=== PATIENT | female | born 1985 | race Caucasian/White ===

== ENCOUNTER 2017-06-01 19:29 | Inpatient (IN) | payer SELFPAY ==
[~2017-06-01] VITALS: Ht 167.6 cm; Wt 60.3 kg
[~2017-06-01 19:29] MED LIST: AMBI10TA PO; DILA2TAB4 PO; IBUP800T23 PO; NICO21T TD; NORT1CAP53 PO; SUBO8MIS SL
[2017-06-01 19:43] VITALS: BP 131/74; PULSE 105; RESP 18; TEMP 98.6; O2SAT 100
[2017-06-01] MEDS ORDERED: SUBO8MIS SL (22:12)
[2017-06-01 22:13] VITALS: BP 126/66; PULSE 97; RESP 20; TEMP 98.4; O2SAT 100
[2017-06-01] MEDS ORDERED: ORPHENADRINE INJ 60 MG/2 ML AMP IM ONE (22:30)
[2017-06-01] MEDS ORDERED: traMADol HCL 50 MG TAB PO ONE (22:30)
[2017-06-01] MEDS ORDERED: KETOROLAC TROMETHAMINE 30 MG/ML (IVP) VIAL IV PUSH ONE (22:30)
--- NOTE | 2017-06-01 22:51 | PD ---
HPI Chief Complaint: Back/ Neck Pain or Injury Time Seen by Provider: 22:13 Travel History International Travel<30 days: No Contact w/Intl Traveler<30days: No Traveled to known affect area: No History of Present Illness HPI 32-year-old female that presents to the ED for evaluation of severe right-sided back pain with inability to ambulate. Per patient she has had this for the past 3 days. She denies any injury. No fall. She does have a history of substance abuse and has a history of IV drug abuse. Patient denies doing any IV drug abuse recently but family is at bedside. Patient is somewhat tachycardic. Per patient the pain comes in spasms and gets worse when she moves. She does have a history of back fractures in the past. She also has a history of endocarditis in the past as well. She denies any chest pain or shortness of breath. Per patient the pain comes and goes and gets worse with movement and she cannot walk because of the pain. She has been taking her Suboxone as well as [id number] remedies with some relief. She states that the pain when he comes is 10 out of 10. Denies any numbness, tingling, weakness. She points to the right lower back as the area of pain. Denies any recent surgeries to her back. Has not seen anybody for this. PFSH Past Medical History Autoimmune Disease: No Blood Disorders: No Anxiety: No Depression: No Cancer: No Cardiovascular Problems: Yes (history endocarditis ) Chemotherapy: No Diminished Hearing: No Endocrine: No Genitourinary: No Immune Disorder: No Musculoskeletal: Yes (chronic back) Psychiatric: No Reproductive: No Respiratory: No Migraines: Yes Tetanus Vaccination: < 5 Years Influenza Vaccination: No ?: Not LMP: 06/01/2017 Past Surgical History Surgical History: No Previous Surgery AICD: No Arteriovenous Shunt: No Insulin Pump: No Joint Replacement: No Pacemaker: No Social History Alcohol Use: No Tobacco Use: Yes (e cig) Substance Use: No (history of IV drug use ) Allergies-Medications (Allergen,Severity, Reaction): Coded Allergies: No Known Allergies (Verified Adverse Reaction, Unknown, 06/01/17) Reported Meds & Prescriptions Reported Meds & Active Scripts Active Reported Suboxone Sublingual Film (Buprenorphine-Naloxone Sublingual Film) 8-2 Mg Film 1 Film SL BID Unique ID number required: Review of Systems Except as stated in HPI: all other systems reviewed are Neg Physical Exam Narrative GENERAL: SKIN: Warm and dry. HEAD: Atraumatic. Normocephalic. EYES: Pupils equal and round. No scleral icterus. No injection or drainage. ENT: No nasal bleeding or discharge. Mucous membranes pink and moist. Tongue is midline. No uvula deviation. NECK: Trachea midline. No JVD. CARDIOVASCULAR: Regular rate and rhythm. No murmurs, S3, S4. RESPIRATORY: No accessory muscle use. Clear to auscultation. Breath sounds equal bilaterally. GASTROINTESTINAL: Abdomen soft, non-tender, nondistended. Hepatic and splenic margins not palpable. MUSCULOSKELETAL: Extremities without clubbing, cyanosis, or edema. No obvious deformities. Patient has reversible pain on the right lower back but not on the lumbar, thoracic, cervical spine tenderness to palpation. Obvious deformity noted. Pain with any range of motion of the back especially with flexion and extension. NEUROLOGICAL: Awake and alert. No obvious cranial nerve deficits. Motor grossly within normal limits. Five out of 5 muscle strength in the arms and legs. Normal speech. PSYCHIATRIC: Appropriate mood and affect; insight and judgment normal. Data Data Last Documented VS Vital Signs Date Time Temp Pulse Resp B/P (MAP) Pulse Ox O2 Delivery O2 Flow Rate FiO2 06/01/17 22:13 98.4 97 20 126/66 (86) 100 Room Air Orders Orders Complete Blood Count With Diff (06/01/17 22:20) Comprehensive Metabolic Panel (06/01/17 22:20) Blood Culture (06/01/17 22:20) C-Reactive Protein (Crp) (06/01/17 22:20) Urinalysis - C+S If Indicated (06/01/17 22:20) Magnesium (Mg) (06/01/17 22:20) Iv Access Insert/Monitor (06/01/17 22:20) Ketorolac Inj (Toradol Inj) (06/01/17 22:30) Tramadol (Ultram) (06/01/17 22:30) Orphenadrine Inj (Norflex Inj) (06/01/17 22:30) Mri L Spine W&W/O Contrast (06/01/17 ) MDM Medical Decision Making Medical Screen Exam Complete: Yes Emergency Medical Condition: Yes Medical Record Reviewed: Yes Differential Diagnosis Lumbar strain versus sciatica versus muscle strain versus muscle spasm versus abscess versus lumbar infection Narrative Course 32-year-old female that presents to the ED for evaluation of back pain. Patient was properly examined and was found to have signs and symptoms consistent with what appears to be back pain. Unclear etiology but definitely a little bit concerning for infection as patient has new onset pain with no injury. She does have a history of IV drug abuse in the past. Neurovascular she is intact but she is absolutely tachycardic. She does have a history of endocarditis in the past as well. She has no chest pain no murmurs noted on exam. I discussed the case with my attending Dr. Zhang who is in agreement that if there is concern for epidural abscess recommendation is for MRI. This was ordered. Patient was given pain medications are no narcotics. Case was signed out to my attending pending disposition and plan. Marquise Parada Jun 01, 2017 22:51
--- NOTE | 2017-06-02 00:18 | RADRPT ---
EXAM DATE/TIME: 06/01/2017 23:36 [facility] COMPARISON: No previous studies available for comparison. INDICATIONS : Pain. MEDICAL HISTORY : Endocarditis. SURGICAL HISTORY : None. ENCOUNTER: Initial ACUITY: 2 day PAIN SCORE: 10/10 LOCATION: [facility] TECHNIQUE: Multiplanar multisequence MRI of the lumbar spine was performed without contrast. FINDINGS: The most caudal appearing lumbar vertebra is numbered as L5. VERTEBRAE: Homogeneous signal. Normal alignment. Mild loss of height along the superior endplate at L3 with Elisabet morl's node deformity. There is edema along the endplates at L4-5. Disc spaces are maintained. CONUS: Normal level and configuration. T12-L1: The thecal sac has a normal diameter. No evidence of disc bulge or protrusion. The neural foramina are patent bilaterally. L1-L2: The thecal sac has a normal diameter. No evidence of disc bulge or protrusion. The neural foramina are patent bilaterally. L2-L3: Minimal broad-based bulge abuts ventral thecal sac without canal stenosis. The neural foramina are p atent bilaterally. L3-L4: The thecal sac has a normal diameter. No evidence of disc bulge or protrusion. The neural foramina are patent bilaterally. L4-L5: Moderate broad-based bulge with annular fissure posteriorly. This abuts the ventral thecal sac. No ca nal stenosis. The neural foramina are patent bilaterally. L5-S1: The thecal sac has a normal diameter. No evidence of disc bulge or protrusion. The neural foramina are patent bilaterally. CONCLUSION: 1. Disc bulges at L2-3 and L4-5 levels. 2. Reactive endplate edema at L4-5. 3. Mild loss of height of L3 with Schmorl node deformity. No acute compression fracture. Tong Crawford MD on June 02, 2017 at 0:15 Board Certified Radiologist. This report was verified electronically.
[2017-06-02 01:01] LABS: BILIRUBIN, URINE NEG (NEG); BLOOD, URINE SMALL (NEG); GLUCOSE,URINE NEG (NEG); KETONE, URINE NEG (NEG); NITRITE,URINE NEG (NEG); SQUAMOUS EPITHELIAL CELL URINE 3 /hpf (0-5); TRANSITIONAL EPI CELLS, URINE <1 /hpf; URINE COLOR LIGHT-YELLOW (YELLW/STRAW); URINE LEUKOCYTE ESTERASE TRACE (NEG)
--- NOTE | 2017-06-02 01:49 | PD ---
Physical Exam Date Seen by Provider: Jun 02, 2017 Time Seen by Provider: 01:47 Narrative The patient is a 32-year-old female was initially evaluated by the previous physician assistant project engineer, Marquise Parada PA-C. Please refer to the initial history, physical, diagnostic evaluation, treatment modality plan. Data Data Last Documented VS Vital Signs Date Time Temp Pulse Resp B/P (MAP) Pulse Ox O2 Delivery O2 Flow Rate FiO2 06/02/17 02:12 98.7 85 16 129/69 (89) 100 Room Air Orders Orders Complete Blood Count With Diff (06/01/17 22:20) Comprehensive Metabolic Panel (06/01/17 22:20) Blood Culture (06/01/17 22:20) C-Reactive Protein (Crp) (06/01/17 22:20) Urinalysis - C+S If Indicated (06/01/17 22:20) Magnesium (Mg) (06/01/17 22:20) Iv Access Insert/Monitor (06/01/17 22:20) Ketorolac Inj (Toradol Inj) (06/01/17 22:30) Tramadol (Ultram) (06/01/17 22:30) Orphenadrine Inj (Norflex Inj) (06/01/17 22:30) Mri L Spine W/O Contrast (06/01/17 ) Vancomycin Inj (Vancomycin Inj) (06/02/17 02:00) Piperacil-Tazo 4.5 Gm Premix (Zosyn 4.5 (06/02/17 02:00) Morphine Inj (Morphine Inj) (06/02/17 02:00) Ondansetron Inj (Zofran Inj) (06/02/17 02:00) Sodium Chlor 0.9% 1000 Ml Inj (Ns 1000 M (06/02/17 02:00) Labs Laboratory Tests Test 06/02/17 00:50 06/02/17 01:50 Urine Color LIGHT-YELLOW Urine Turbidity CLEAR Urine pH 7.0 Urine Specific [place] 1.003 Urine Protein NEG mg/dL Urine Glucose (UA) NEG mg/dL Urine Ketones NEG mg/dL Urine Occult Blood SMALL Urine Nitrite NEG Urine Bilirubin NEG Urine Urobilinogen LESS THAN 2.0 MG/DL Urine Leukocyte Esterase TRACE Urine RBC 1 /hpf Urine WBC 1 /hpf Urine Squamous Epithelial Cells 3 /hpf Urine Transitional Epithelial Cells <1 /hpf Microscopic Urinalysis Comment CULT NOT INDICATED White Blood Count 14.0 TH/MM3 Red Blood Count 4.04 MIL/MM3 Hemoglobin 11.7 GM/DL Hematocrit 34.5 % Mean Corpuscular Volume 85.6 FL Mean Corpuscular Hemoglobin 29.1 PG Mean Corpuscular Hemoglobin Concent 34.0 % Red Cell Distribution Width 13.0 % Platelet Count 348 TH/MM3 Mean Platelet Volume 6.5 FL Neutrophils (%) (Auto) 83.7 % Lymphocytes (%) (Auto) 11.7 % Monocytes (%) (Auto) 3.2 % Eosinophils (%) (Auto) 1.0 % Basophils (%) (Auto) 0.4 % Neutrophils # (Auto) 11.8 TH/MM3 Lymphocytes # (Auto) 1.6 TH/MM3 Monocytes # (Auto) 0.5 TH/MM3 Eosinophils # (Auto) 0.1 TH/MM3 Basophils # (Auto) 0.1 TH/MM3 CBC Comment DIFF FINAL Differential Comment Blood Urea Nitrogen 8 MG/DL Creatinine 0.73 MG/DL Random Glucose 75 MG/DL Total Protein 8.5 GM/DL Albumin 3.6 GM/DL Calcium Level 9.2 MG/DL Magnesium Level 2.2 MG/DL Alkaline Phosphatase 72 U/L Aspartate Amino Transf (AST/SGOT) 17 U/L Alanine Aminotransferase (ALT/SGPT) 11 U/L Total Bilirubin 0.5 MG/DL Sodium Level 139 MEQ/L Potassium Level 3.6 MEQ/L Chloride Level 104 MEQ/L Carbon Dioxide Level 24.9 MEQ/L Anion Gap 10 MEQ/L Estimat Glomerular Filtration Rate 93 ML/MIN C-Reactive Protein 8.42 MG/DL [facility] Medical Record Reviewed: Yes Supervised Visit with SLICK: Yes Interpretation(s) Last Impressions Lumbar Spine MRI 06/01/17 0000 Signed Impressions: Service Date/Time: Thursday, June 01, 2017 23:36 - CONCLUSION: 1. Disc bulges at L2-3 and L4-5 levels. 2. Reactive endplate edema at L4-5. 3. Mild loss of height of L3 with Schmorl node deformity. No acute compression fracture. Tong Crawford MD Laboratory Tests Test 06/02/17 00:50 06/02/17 01:50 Urine Color LIGHT-YELLOW Urine Turbidity CLEAR Urine pH 7.0 Urine Specific [place] 1.003 Urine Protein NEG mg/dL Urine Glucose (UA) NEG mg/dL Urine Ketones NEG mg/dL Urine Occult Blood SMALL Urine Nitrite NEG Urine Bilirubin NEG Urine Urobilinogen LESS THAN 2.0 MG/DL Urine Leukocyte Esterase TRACE Urine RBC 1 /hpf Urine WBC 1 /hpf Urine Squamous Epithelial Cells 3 /hpf Urine Transitional Epithelial Cells <1 /hpf Microscopic Urinalysis Comment CULT NOT INDICATED White Blood Count 14.0 TH/MM3 Red Blood Count 4.04 MIL/MM3 Hemoglobin 11.7 GM/DL Hematocrit 34.5 % Mean Corpuscular Volume 85.6 FL Mean Corpuscular Hemoglobin 29.1 PG Mean Corpuscular Hemoglobin Concent 34.0 % Red Cell Distribution Width 13.0 % Platelet Count 348 TH/MM3 Mean Platelet Volume 6.5 FL Neutrophils (%) (Auto) 83.7 % Lymphocytes (%) (Auto) 11.7 % Monocytes (%) (Auto) 3.2 % Eosinophils (%) (Auto) 1.0 % Basophils (%) (Auto) 0.4 % Neutrophils # (Auto) 11.8 TH/MM3 Lymphocytes # (Auto) 1.6 TH/MM3 Monocytes # (Auto) 0.5 TH/MM3 Eosinophils # (Auto) 0.1 TH/MM3 Basophils # (Auto) 0.1 TH/MM3 CBC Comment DIFF FINAL Differential Comment Blood Urea Nitrogen 8 MG/DL Creatinine 0.73 MG/DL Random Glucose 75 MG/DL Total Protein 8.5 GM/DL Albumin 3.6 GM/DL Calcium Level 9.2 MG/DL Magnesium Level 2.2 MG/DL Alkaline Phosphatase 72 U/L Aspartate Amino Transf (AST/SGOT) 17 U/L Alanine Aminotransferase (ALT/SGPT) 11 U/L Total Bilirubin 0.5 MG/DL Sodium Level 139 MEQ/L Potassium Level 3.6 MEQ/L Chloride Level 104 MEQ/L Carbon Dioxide Level 24.9 MEQ/L Anion Gap 10 MEQ/L Estimat Glomerular Filtration Rate 93 ML/MIN C-Reactive Protein 8.42 MG/DL Differential Diagnosis Differential diagnosis includes epidural abscess, psoas abscess, discitis, IV drug abuse, back pain with radiculopathy, lumbar ago, herniated disc. Narrative Course The patient was initially evaluated by the physician assistant project engineer, Marquise Parada PA-C. Please refer to the initial history, physical, diagnostic evaluation, treatment modality plan. The patient was signed out at 11 PM with MRI pending for possible epidural/psoas abscess and/or discitis with a history of IV drug abuse and back pain. The patient states she is used no IV drugs since August 2016 and has been on Suboxone. The patient was noted to have some right paravertebral tenderness, therefore, MRI was ordered by the physician assistant project engineer , Marquise Parada. MRI was performed initially without contrast secondary to no IV access. MRI did reveal edema at the L4-L5 level. Therefore, I placed an ultrasound-guided IV in the left upper extremity, patient will need repeat MRI with contrast in the a.m. to evaluate for possible discitis. The patient will be covered with vancomycin and Zosyn. The on-call medical service was paged for admission. White count was elevated at 14.0wa and CRP s elevated greater than 8. Patient may need repeat MRI with contrast to evaluate if this is truly infectious. Therefore, the on-call medical physician was paged for observation. Procedures Procedure Narrative I placed an ultrasound-guided IV in the left upper extremity with a linear probe and a 1.88 inch 20-gauge IV. I placed the IV in the left upper extremity , there was good blood return and the IV fluid easily. There is no obvious complications. The patient tolerated the procedure without difficulty. Physician Communication Physician Communication [facility] were paged for 23 hour observation. Diagnosis Primary Impression: Back pain Qualified Codes: M54.40 - Lumbago with sciatica, unspecified side Admitting Information Admitting Physician Requests: Observation Condition: Stable Ramsey Zhang MD Jun 02, 2017 01:49
[2017-06-02] MEDS ORDERED: MORPHINE SULFATE 4 MG/ML INJ IV PUSH ONE (02:00)
[2017-06-02] MEDS ORDERED: VANCOMYCIN INJ 1,000 MG in SODIUM CHLOR 0.9% 250 ML INJ 250 ML IV ONE (02:00)
[2017-06-02] MEDS ORDERED: ONDANSETRON HCL 4 MG/2 ML VIAL IV PUSH ONE (02:00)
[2017-06-02] MEDS ORDERED: PIPERACIL-TAZO 4.5 GM PREMIX 100 ML IV ONE (02:00)
[2017-06-02] MEDS ORDERED: SODIUM CHLOR 0.9% 1000 ML INJ 1,000 ML IV ONE (02:00)
[2017-06-02 02:12] VITALS: BP 129/69; PULSE 85; RESP 16; TEMP 98.7; O2SAT 100
[2017-06-02 02:14] LABS: AUTOMATED NEUTROPHIL # 11.8 TH/MM3 (1.8-7.7); BASOPHIL # 0.1 TH/MM3 (0-0.2); BASOPHIL % 0.4 % (0.0-2.0); EOSINOPHIL # 0.1 TH/MM3 (0-0.4); HEMATOCRIT 34.5 % (35.0-46.0); HEMOGLOBIN 11.7 GM/DL (11.6-15.3); LYMPH % 11.7 % (9.0-44.0); LYMPHOCYTE # 1.6 TH/MM3 (1.0-4.8); MEAN CELL VOLUME 85.6 FL (80.0-100.0); MEAN CORPUSCULAR HEMOGLOBIN 29.1 PG (27.0-34.0); MEAN PLATELET VOLUME 6.5 FL (7.0-11.0); MONO % 3.2 % (0.0-8.0); MONOCYTE # 0.5 TH/MM3 (0-0.9); NEUT % 83.7 % (16.0-70.0); PLATELET COUNT 348 TH/MM3 (150-450); RED BLOOD COUNT 4.04 MIL/MM3 (4.00-5.30)
[2017-06-02 02:25] LABS: ALKALINE PHOSPHATASE 72 U/L (45-117); ALT (GPT) 11 U/L (10-53); C-REACTIVE PROTEIN 8.42 MG/DL (0.00-0.30); TOTAL BILIRUBIN ADULT 0.5 MG/DL (0.2-1.0); TOTAL PROTEIN 8.5 GM/DL (6.4-8.2)
[2017-06-02 02:27] LABS: ALBUMIN 3.6 GM/DL (3.4-5.0); AST (GOT) 17 U/L (15-37); BICARBONATE 24.9 MEQ/L (21.0-32.0); BLOOD UREA NITROGEN 8 MG/DL (7-18); CALCIUM 9.2 MG/DL (8.5-10.1); CHLORIDE 104 MEQ/L (98-107); CREATININE 0.73 MG/DL (0.50-1.00); GLOMERULAR FILTRATION RATE 93 ML/MIN (>89); GLUCOSE,RANDOM 75 MG/DL (74-106); MAGNESIUM 2.2 MG/DL (1.5-2.5); SODIUM (NA) 139 MEQ/L (136-145)
[2017-06-02] MEDS ORDERED: SENNOSIDES 8.6 MG TAB PO PRN (02:45)
[2017-06-02] MEDS ORDERED: BISACODYL 10 MG SUPP RECTAL PRN (02:45)
[2017-06-02] MEDS ORDERED: ONDANSETRON HCL 4 MG/2 ML VIAL IVP PRN (02:45)
[2017-06-02] MEDS ORDERED: traMADol HCL 50 MG TAB PO PRN (02:45)
[2017-06-02] MEDS ORDERED: LACTULOSE SYRUP 20 GM/30 ML CUP PO PRN (02:45)
[2017-06-02] MEDS ORDERED: NALOXONE HCL 0.4 MG/ML AMP IV PUSH PRN (02:45)
[2017-06-02] MEDS ORDERED: MAGNESIUM HYDROXIDE SUSP 30 ML CUP PO PRN (02:45)
[2017-06-02] MEDS ORDERED: Vancomycin Consult Pharmacy 1 EA OTHER SCH (03:00)
--- NOTE | 2017-06-02 03:47 | HHI.HP ---
[facility] No Primary Care Physician Admission Diagnosis Back pain rule out discitis Diagnoses: Travel History International Travel<30 Days: No Contact w/Intl Traveler <30 Da: No Traveled to Known Affected Are: No History of Present Illness 32-year-old female with past medical history significant for IV drug abuse and history of endocarditis presents to the emergency department for evaluation of lower back pain. The patient reports that for the past 3 days she has had a sharp, stabbing pain in her lower back. She reports the pain is worse with movement but is there all the time. She reports she is having difficulty with ambulation secondary to this pain. She denies any shortness of breath or chest pain. No fevers or chills. No nausea/vomiting. No abdominal pain. No lateralizing signs/symptoms. No bowel/bladder incontinence. Review of Systems Except as stated in HPI: all other systems reviewed are Neg Past Family Social History Past Medical History History of endocarditis and IV drug abuse Past Surgical History None Reported Medications Reported Meds & Active Scripts Active Reported Suboxone Sublingual Film (Buprenorphine-Naloxone Sublingual Film) 8-2 Mg Film 1 Film SL BID Unique ID number required: Allergies: Coded Allergies: No Known Allergies (Verified Allergy, Unknown, 06/02/17) Family History Negative for CAD/DM Social History Uses electronic cigarettes. Denies alcohol and illicit drugs. Has a history of IV drug abuse with last injection approximately 6-8 months ago. Physical Exam Vital Signs Vital Signs Date Time Temp Pulse Resp B/P (MAP) Pulse Ox O2 Delivery O2 Flow Rate FiO2 06/02/17 02:12 98.7 85 16 129/69 (89) 100 Room Air 06/01/17 22:13 98.4 97 20 126/66 (86) 100 Room Air 06/01/17 19:43 98.6 105 18 131/74 (93) 100 Room Air Physical Exam GENERAL: female lying in bed SKIN: No rashes, ecchymoses or lesions. Cool and dry. HEAD: Atraumatic. Normocephalic. No temporal or scalp tenderness. EYES: Pupils equal round and reactive. Extraocular motions intact. No scleral icterus. No injection or drainage. ENT: Nose without bleeding, purulent drainage or septal hematoma. Throat without erythema, tonsillar hypertrophy or exudate. Uvula midline. Airway patent. NECK: Trachea midline. No JVD or lymphadenopathy. Supple, nontender, no meningeal signs. CARDIOVASCULAR: Regular rate and rhythm without murmurs, gallops, or rubs. RESPIRATORY: Clear to auscultation. Breath sounds equal bilaterally. No wheezes , rales, or rhonchi. GASTROINTESTINAL: Abdomen soft, non-tender, nondistended. No hepato-splenomegaly , or palpable masses. No guarding. MUSCULOSKELETAL: Extremities without clubbing, cyanosis, or edema. No joint tenderness, effusion, or edema noted. No calf tenderness. NEUROLOGICAL: Awake and alert. Cranial nerves II through XII intact. Motor and sensory grossly within normal limits. Five out of 5 muscle strength in all muscle groups. Normal speech. Laboratory Laboratory Tests Test 06/02/17 00:50 06/02/17 01:50 Urine Color LIGHT-YELLOW Urine Turbidity CLEAR Urine pH 7.0 Urine Specific [place] 1.003 Urine Protein NEG Urine Glucose (UA) NEG Urine Ketones NEG Urine Occult Blood SMALL Urine Nitrite NEG Urine Bilirubin NEG Urine Urobilinogen LESS THAN 2.0 Urine Leukocyte Esterase TRACE Urine RBC 1 Urine WBC 1 Urine Squamous Epithelial Cells 3 Urine Transitional Epithelial Cells <1 Microscopic Urinalysis Comment CULT NOT INDICATED White Blood Count 14.0 Red Blood Count 4.04 Hemoglobin 11.7 Hematocrit 34.5 Mean Corpuscular Volume 85.6 Mean Corpuscular Hemoglobin 29.1 Mean Corpuscular Hemoglobin Concent 34.0 Red Cell Distribution Width 13.0 Platelet Count 348 Mean Platelet Volume 6.5 Neutrophils (%) (Auto) 83.7 Lymphocytes (%) (Auto) 11.7 Monocytes (%) (Auto) 3.2 Eosinophils (%) (Auto) 1.0 Basophils (%) (Auto) 0.4 Neutrophils # (Auto) 11.8 Lymphocytes # (Auto) 1.6 Monocytes # (Auto) 0.5 Eosinophils # (Auto) 0.1 Basophils # (Auto) 0.1 CBC Comment DIFF FINAL Differential Comment Blood Urea Nitrogen 8 Creatinine 0.73 Random Glucose 75 Total Protein 8.5 Albumin 3.6 Calcium Level 9.2 Magnesium Level 2.2 Alkaline Phosphatase 72 Aspartate Amino Transf (AST/SGOT) 17 Alanine Aminotransferase (ALT/SGPT) 11 Total Bilirubin 0.5 Sodium Level 139 Potassium Level 3.6 Chloride Level 104 Carbon Dioxide Level 24.9 Anion Gap 10 Estimat Glomerular Filtration Rate 93 C-Reactive Protein 8.42 Date/Time Source Procedure Growth Status 06/02/17 01:55 Blood Peripheral Aerobic Blood Culture Pending Received 06/02/17 01:55 Blood Peripheral Anaerobic Blood Culture Pending Received Result Diagram: 06/02/17 0150 06/02/17 0150 Caprini VTE Risk Assessment Caprini VTE Risk Assessment: No/Low Risk (score <= 1) Caprini Risk Assessment Model Point Value = 1 Point Value = 2 Point Value = 3 Point Value = 5 Age 41-60 Minor surgery BMI > 25 kg/m2 Swollen legs Varicose veins or History of unexplained or recurrent spontaneous Oral contraceptives or hormone replacement Sepsis (< 1 month) Serious lung disease, including pneumonia (< 1 month) Abnormal pulmonary function Acute myocardial infarction Congestive heart failure (< 1 month) History of inflammatory bowel disease Medical patient at bed rest Age 61-74 Arthroscopic surgery Major open surgery (> 45 min) Laparoscopic surgery (> 45 min) Malignancy Confined to bed (> 72 hours) Immobilizing plaster cast Central venous access Age >= 75 History of VTE Family history of VTE Factor V Leiden Prothrombin [id number] Lupus anticoagulant Anticardiolipin antibodies Elevated serum homocysteine Heparin-induced thrombocytopenia Other congenital or acquired thrombophilia Stroke (< 1 month) Elective arthroplasty Hip, pelvis, or leg fracture Acute spinal cord injury (< 1 month) Prophylaxis Regimen Total Risk Factor Score Risk Level Prophylaxis Regimen 0-1 Low Early ambulation 2 Moderate Order ONE of the following: *Sequential Compression Device (SCD) *Heparin 5000 units SQ BID 3-4 Higher Order ONE of the following medications: *Heparin 5000 units SQ TID *Enoxaparin/Lovenox 40 mg SQ daily (WT < 150 kg, CrCl > 30 mL/min) *Enoxaparin/Lovenox 30 mg SQ daily (WT < 150 kg, CrCl > 10-29 mL/min) *Enoxaparin/Lovenox 30 mg SQ BID (WT < 150 kg, CrCl > 30 mL/min) AND/OR *Sequential Compression Device (SCD) 5 or more Highest Order ONE of the following medications: *Heparin 5000 units SQ TID (Preferred with Epidurals) *Enoxaparin/Lovenox 40 mg SQ daily (WT < 150 kg, CrCl > 30 mL/min) *Enoxaparin/Lovenox 30 mg SQ daily (WT < 150 kg, CrCl > 10-29 mL/min) *Enoxaparin/Lovenox 30 mg SQ BID (WT < 150 kg, CrCl > 30 mL/min) AND *Sequential Compression Device (SCD) Assessment and Plan Assessment and Plan Assessment/plan: 1. Back pain MRI of the lumbar spine showed disc bulges at L2-3 and L4-5 with reactive endplate edema at L4-5. Concern for discitis versus possible abscess. Leukocytosis with elevated CRP MRI with contrast pending Vancomycin/Zosyn Blood cultures pending If MRI significant for abscess/discitis will consult neurosurgery and infectious disease 2. History of IV drug abuse Patient currently on Suboxone Patient's mother requested that the patient not be given any narcotics at this time Per patient report, last use was 6-8 months ago 3. History of endocarditis Blood cultures pending If positive, will obtain echo FEN NPO Electrolytes: Monitor and replete as needed NS at 80 cc/hour Sirena Roman MD Jun 02, 2017 03:46
[2017-06-02] MEDS: CYCLOBENZAPRINE HCL 10 MG TAB PO PRN ×3 (04:43→17:39)
[2017-06-02 04:44] VITALS: BP 135/75; PULSE 87; RESP 19; TEMP 98.4; O2SAT 100
[2017-06-02] MEDS: ACETAMINOPHEN 325 MG TAB PO PRN (07:34)
[2017-06-02] MEDS: SODIUM CHLOR 0.9% 1000 ML INJ 1,000 ML IV SCH ×2 (07:35→15:00)
[2017-06-02] MEDS ORDERED: GADODIAMIDE PF 287 MG/ML 5 ML VIAL (for RAD MRI) IVCONTRAST ONE (08:00)
[2017-06-02] MEDS ORDERED: PIPERACIL-TAZO 3.375 GM PREMIX 50 ML IV SCH (08:00)
[2017-06-02] MEDS: SODIUM CHLORIDE 0.9% FLUSH 10 ML FLUSH IV FLUSH SCH ×2 (08:57→19:39)
[2017-06-02] MEDS: DOCUSATE SODIUM 50 MG/SENNA 8.6 MG TAB PO SCH ×2 (08:57→19:40)
[2017-06-02 09:03] VITALS: BP 128/80; PULSE 86; RESP 19; TEMP 99.5; O2SAT 100
[2017-06-02] MEDS ORDERED: VANCOMYCIN INJ 1,250 MG in SODIUM CHLOR 0.9% 250 ML INJ 250 ML IV SCH (12:00)
--- NOTE | 2017-06-02 12:19 | RADRPT ---
EXAM DATE/TIME: 06/02/2017 07:43 [facility] COMPARISON: MRI LUMBAR SPINE W & W/O CONTRAST, July 11, 2015, 15:53. INDICATIONS : Severe back pain. CONTRAST: 12 cc Omniscan (gadodiamide) IV MEDICAL HISTORY : IVDU. SURGICAL HISTORY : Dental. ENCOUNTER: Subsequent ACUITY: 2 day PAIN SCORE: 8/10 LOCATION: back. TECHNIQUE: Multiplanar multisequence MRI of the lumbar spine was performed with and without contrast. FINDINGS: The most caudal appearing lumbar vertebra is numbered as L5. VERTEBRAE: The vertebral bodies are stable in appearance with chronic mild compression fracture deformity of the L3 vertebral body again noted which demonstrates no marrow edema. There is new marrow edema involvin g the endplates at the L4-5 level. There is desiccation disc space narrowing at the L4-5 level as wel l. Normal alignment. CONUS: Normal level and configuration. POST CONTRAST: Mild apparent reactive enhancement is noted in the endplates at the L4-5 level corresponding to the a reas of marrow edema. There is slight enhancement of the foot posterior annulus is seen on sagittal i mage #6. T12-L1: The thecal sac has a normal diameter. No evidence of disc bulge or protrusion. The neural foramina are patent bilaterally. L1-L2: The thecal sac has a normal diameter. No evidence of disc bulge or protrusion. The neural foramina are patent bilaterally. L2-L3: The thecal sac has a normal diameter. No evidence of disc bulge or protrusion. The neural foramina are patent bilaterally. L3-L4: The thecal sac has a normal diameter. No evidence of disc bulge or protrusion. The neural foramina are patent bilaterally. L4-L5: There is a mild annular disc bulge with mild flattening the anterior thecal sac and no focal protrusi on. There is mild narrowing of the neural foramina. There are mild degenerative changes involving the facet joints. L5-S1: The thecal sac has a normal diameter. No evidence of disc bulge or protrusion. The neural foramina are patent bilaterally. There are mild degenerative change involving the facet joints. CONCLUSION: 1. No evidence of abscess. 2. New mild reactive appearing marrow edema and bony endplates at L4-5 with mild apparent reactive en hancement. There is slight enhancement in posterior disc margin the disc bulge is present. This could be degenerative there is no definite evidence of discitis. 3. Mild degenerative change involving the lower facet joints. Samson Schaffer MD on June 02, 2017 at 12:09 Board Certified Radiologist. This report was verified electronically.
[2017-06-02] MEDS ORDERED: ACETAMINOPHEN/HYDROcodone 325 MG/5 MG TAB PO PRN (13:15)
--- NOTE | 2017-06-02 13:30 | HHI.PR ---
Subjective Remarks Follow up on patient with back pain. Patient seen and examined. Patient complaining of severe low back pain with occasional radiation into the right lateral thigh. She denies any fever or chills. She denies any chest pain or dyspnea. She denies any nausea, vomiting or abdominal pain. She denies any saddle paresthesias. She denies any bladder or bowel incontinence. Objective Vitals Vital Signs Date Time Temp Pulse Resp B/P (MAP) Pulse Ox O2 Delivery O2 Flow Rate FiO2 06/02/17 09:03 99.5 86 19 128/80 (96) 100 Room Air 06/02/17 04:44 98.4 87 19 135/75 (95) 100 Room Air 06/02/17 02:12 98.7 85 16 129/69 (89) 100 Room Air 06/01/17 22:13 98.4 97 20 126/66 (86) 100 Room Air 06/01/17 19:43 98.6 105 18 131/74 (93) 100 Room Air I/O 06/01/17 06/01/17 06/01/17 06/02/17 06/02/17 06/02/17 07:00 15:00 23:00 07:00 15:00 23:00 Intake Total 1350 ml Balance 1350 ml Intake IV Total 1350 ml # Voids 2 Result Diagram: 06/02/17 0150 06/02/17 0150 Imaging Last Impressions Lumbar Spine MRI 06/02/17 0000 Signed Impressions: Service Date/Time: May 07:43 - CONCLUSION: 1. No evidence of abscess. 2. New mild reactive appearing marrow edema and bony endplates at L4-5 with mild apparent reactive enhancement. There is slight enhancement in posterior disc margin the disc bulge is present. This could be degenerative there is no definite evidence of discitis. 3. Mild degenerative change involving the lower facet joints. Samson Schaffer MD Objective Remarks GENERAL: WDWN young female patient. Awake and alert. Appears uncomfortable secondary to back pain. SKIN: No rashes, ecchymoses or lesions. Cool and dry. HEAD: Atraumatic. Normocephalic. No temporal or scalp tenderness. EYES: Pupils equal round and reactive. Extraocular motions intact. No scleral icterus. No injection or drainage. ENT: Nose without bleeding or purulent drainage. Airway patent. MMM. NECK: Trachea midline. CARDIOVASCULAR: Regular rate and rhythm without murmurs, gallops, or rubs. RESPIRATORY: Clear to auscultation. Breath sounds equal bilaterally. No wheezes , rales, or rhonchi. GASTROINTESTINAL: Abdomen soft, non-tender, nondistended. No hepato-splenomegaly , or palpable masses. No guarding. MUSCULOSKELETAL: Extremities without clubbing, cyanosis, or edema. No calf tenderness. Unable to assess ROM secondary to pain. (+)right SLR. NEUROLOGICAL: Awake and alert. Cranial nerves II through XII grossly intact. Motor and sensory grossly within normal limits. Normal speech. PSYCHIATRIC: Tearful, calm and cooperative. Medications and IVs Current Medications Medications (Trade) Dose Ordered Sig/Elisabet Route Start Time Stop Time Status Last Admin Sodium Chloride 1,000 ml @ 80 mls/hr [id number] IV 06/02/17 02:38 (NS Flush) 2 ml UNSCH PRN IV FLUSH 06/02/17 02:45 (NS Flush) 2 ml BID IV FLUSH 06/02/17 09:00 06/02/17 08:57 (Tylenol) 650 mg Q4H PRN PO 06/02/17 02:45 06/02/17 07:34 (Zofran Inj) 4 mg Q6H PRN IVP 06/02/17 02:45 (Narcan Inj) 0.4 mg UNSCH PRN IV PUSH 06/02/17 02:45 (Micki-Colace) 1 tab BID PO 06/02/17 09:00 06/02/17 08:57 (Milk Of Magnesia Liq) 30 ml Q12H PRN PO 06/02/17 02:45 (Senokot) 17.2 mg Q12H PRN PO 06/02/17 02:45 (Dulcolax Supp) 10 mg DAILY PRN RECTAL 06/02/17 02:45 (Lactulose Liq) 30 ml DAILY PRN PO 06/02/17 02:45 Piperacillin Sod/ Tazobactam Sod 50 ml @ 100 mls/hr Q6H IV 06/02/17 08:00 06/02/17 08:57 Pharmacy Profile Note 0 ml @ 0 mls/hr UNSCH OTHER 06/02/17 03:00 (Flexeril) 10 mg Q8H PRN PO 06/02/17 03:45 06/02/17 13:02 Vancomycin HCl 1250 mg/Sodium Chloride 262.5 ml @ 250 mls/hr Q12H IV 06/02/17 12:00 06/02/17 13:02 Miscellaneous Information SPECIFIC LAB TO BE DRAWN:VANCOMYCIN TROUGH DATE TO... ONCE ONCE .XX 06/03/17 11:45 06/03/17 11:46 A/P Assessment and Plan 32-year-old female with past medical history significant for IV drug abuse and history of endocarditis presents to the emergency department for evaluation of lower back pain. Back pain MRI of the lumbar spine showed disc bulges at L2-3 and L4-5 with reactive endplate edema at L4-5. Concern for discitis versus possible abscess. Leukocytosis with elevated CRP, afebrile MRI with contrast shows new mild reactive appearing marrow edema and bony endplates at L45 with mild apparent reactive enhancement -Consult ID, appreciate recommendations. Per IR, not amenable to biopsy. Plans to stop IV antibiotics and obtain WBC scan. -BCX currently pending, continue to follow -pain management with bowel regimen -monitor white count -PT eval/tx History of IV drug abuse Patient has not used in past 6-8 months, currently on Suboxone as outpatient -obtain UDS -monitor opiate use History of endocarditis Blood cultures pending -If positive, will obtain echo FEN Regular diet Electrolytes: Monitor and replete as needed NS at 80 cc/hour Martha Sierra Jun 02, 2017 13:30
[2017-06-02] MEDS: ACETAMINOPHEN/HYDROcodone 325 MG/10 MG TAB PO PRN ×2 (14:22→21:20)
--- NOTE | 2017-06-02 14:30 | PD.ID.CON ---
History of Present Illness Service ID Consult Requested By Martha Garza PA-C Reason for Consult Evaluation and Mment of possible discitis Primary Care Physician No Primary Care Physician Diagnoses: History of Present Illness is a 32 y/o CF with PMHx of IV drug abuse and history of endocarditis presents to the emergency department for evaluation of lower back pain. The patient reports that for the past 3 days she has had a sharp, stabbing pain in her lower back. She reports the pain is worse with movement but is there all the time. She reports she is having difficulty with ambulation secondary to this pain. She denies any shortness of breath or chest pain. No fevers or chills. No nausea/vomiting. No abdominal pain. No lateralizing signs/symptoms except complains of pain radiating from back to Right leg. No tingling numbness. No loss of sensation in perineum. No bowel/bladder incontinence. ID consulted for evaluation and Mment of Discitis. Review of Systems Constitutional: DENIES: Diaphoretic episodes, Fatigue, Fever, Weight gain, Weight loss, Chills, Dizziness, Change in appetite, Night Sweats Endocrine: DENIES: Abnorml menstrual pattern, Heat/cold intolerance, Polydipsia , Polyuria, Polyphagia Eyes: DENIES: Blurred vision, Diplopia, Eye inflammation, Eye pain, Vision loss , Photosensitivity, Double Vision Ears, nose, mouth, throat: DENIES: Tinnitus, Hearing loss, Vertigo, Nasal discharge, Oral lesions, Throat pain, Hoarseness, Ear Pain, Running Nose, Epistaxis, Sinus Pain, Toothache, Odynophagia Respiratory: DENIES: Apneas, Cough, Snoring, Wheezing, Hemoptysis, Sputum production, Shortness of breath Cardiovascular: DENIES: Chest pain, Palpitations, Syncope, Dyspnea on Exertion , PND, Lower Extremity Edema, Orthopnea, Claudication Gastrointestinal: DENIES: Abdominal pain, Black stools, Bloody stools, Constipation, Diarrhea, Nausea, Vomiting, Difficulty Swallowing, Anorexia Genitourinary: DENIES: Abnormal vaginal bleeding, Dysmenorrhea, Dyspareunia, Sexual dysfunction, Urinary frequency, Urinary incontinence, Urgency, Hematuria , Dysuria, Nocturia, Vaginal discharge Musculoskeletal: DENIES: Joint pain, Muscle aches, Stiffness, Joint Swelling, Back pain, Neck pain Integumentary: DENIES: Abnormal pigmentation, Pruritus, Rash, Nail changes, Breast masses, Breast skin changes, Nipple discharge Hematologic/lymphatic: DENIES: Bruising, Lymphadenopathy Immunologic/allergic: DENIES: Eczema, Urticaria Neurologic: DENIES: Abnormal gait, Headache, Localized weakness, Paresthesias, Seizures, Speech Problems, Tremor, Poor Balance Psychiatric: DENIES: Anxiety, Confusion, Mood changes, Depression, Hallucinations, Agitation, Suicidal Ideation, Homicidal Ideation, Delusions Except as stated in HPI: all other systems reviewed are Neg Past Family Social History Allergies: Coded Allergies: No Known Allergies (Verified Allergy, Unknown, 06/02/17) Past Medical History History of endocarditis and IV drug abuse Past Surgical History None Reported Medications Reported Meds & Active Scripts Active Reported Suboxone Sublingual Film (Buprenorphine-Naloxone Sublingual Film) 8-2 Mg Film 1 Film SL BID Unique ID number required: Active Ordered Medications Current Medications Medications (Trade) Dose Ordered Sig/Elisabet Route Start Time Stop Time Status Last Admin Sodium Chloride 1,000 ml @ 80 mls/hr [id number] IV 06/02/17 02:38 06/03/17 03:21 (NS Flush) 2 ml UNSCH PRN IV FLUSH 06/02/17 02:45 (NS Flush) 2 ml BID IV FLUSH 06/02/17 09:00 06/02/17 19:39 (Tylenol) 650 mg Q4H PRN PO 06/02/17 02:45 06/02/17 07:34 (Zofran Inj) 4 mg Q6H PRN IVP 06/02/17 02:45 (Narcan Inj) 0.4 mg UNSCH PRN IV PUSH 06/02/17 02:45 (Micki-Colace) 1 tab BID PO 06/02/17 09:00 06/02/17 19:40 (Milk Of Magnesia Liq) 30 ml Q12H PRN PO 06/02/17 02:45 (Senokot) 17.2 mg Q12H PRN PO 06/02/17 02:45 (Dulcolax Supp) 10 mg DAILY PRN RECTAL 06/02/17 02:45 (Lactulose Liq) 30 ml DAILY PRN PO 06/02/17 02:45 (Flexeril) 10 mg Q8H PRN PO 06/02/17 03:45 06/03/17 02:02 (Fountain 5-325 Mg) 1 tab Q6H PRN PO 06/02/17 13:15 (Fountain 10-325 Mg) 1 tab Q6H PRN PO 06/02/17 13:15 06/03/17 03:28 Family History reviewed and [place] Social History Uses electronic cigarettes. Denies alcohol and illicit drugs. Has a history of IV drug abuse with last injection approximately 6-8 months ago. Lives with her parents. Lost her job at [employer]. Physical Exam Vital Signs Vital Signs Date Time Temp Pulse Resp B/P (MAP) Pulse Ox O2 Delivery O2 Flow Rate FiO2 06/02/17 09:03 99.5 86 19 128/80 (96) 100 Room Air 06/02/17 04:44 98.4 87 19 135/75 (95) 100 Room Air 06/02/17 02:12 98.7 85 16 129/69 (89) 100 Room Air 06/01/17 22:13 98.4 97 20 126/66 (86) 100 Room Air 06/01/17 19:43 98.6 105 18 131/74 (93) 100 Room Air Physical Exam GENERAL: This is a well-nourished, well-developed patient, in no apparent distress. SKIN: No rashes, ecchymoses or lesions. Cool and dry. HEAD: Atraumatic. Normocephalic. No temporal or scalp tenderness. EYES: Pupils equal round and reactive. Extraocular motions intact. No scleral icterus. No injection or drainage. ENT: Nose without bleeding, purulent drainage or septal hematoma. Throat without erythema, tonsillar hypertrophy or exudate. Uvula midline. Airway patent. NECK: Trachea midline. No JVD or lymphadenopathy. Supple, nontender, no meningeal signs. CARDIOVASCULAR: Regular rate and rhythm without murmurs, gallops, or rubs. RESPIRATORY: Clear to auscultation. Breath sounds equal bilaterally. No wheezes , rales, or rhonchi. GASTROINTESTINAL: Abdomen soft, non-tender, nondistended. No hepato-splenomegaly , or palpable masses. No guarding. MUSCULOSKELETAL: Extremities without clubbing, cyanosis, or edema. No joint tenderness, effusion, or edema noted. No calf tenderness. Negative Homans sign bilaterally. NEUROLOGICAL: Awake and alert. Cranial nerves II through XII intact. Motor and sensory grossly within normal limits. Five out of 5 muscle strength in all muscle groups. Normal speech. Laboratory Laboratory Tests Test 06/02/17 00:50 06/02/17 01:50 Urine Color LIGHT-YELLOW Urine Turbidity CLEAR Urine pH 7.0 Urine Specific Brewster 1.003 Urine Protein NEG Urine Glucose (UA) NEG Urine Ketones NEG Urine Occult Blood SMALL Urine Nitrite NEG Urine Bilirubin NEG Urine Urobilinogen LESS THAN 2.0 Urine Leukocyte Esterase TRACE Urine RBC 1 Urine WBC 1 Urine Squamous Epithelial Cells 3 Urine Transitional Epithelial Cells <1 Microscopic Urinalysis Comment CULT NOT INDICATED Urine Opiates Screen NEG Urine Barbiturates Screen NEG Urine Amphetamines Screen NEG Urine Benzodiazepines Screen NEG Urine Cocaine Screen POS Urine Cannabinoids Screen POS White Blood Count 14.0 Red Blood Count 4.04 Hemoglobin 11.7 Hematocrit 34.5 Mean Corpuscular Volume 85.6 Mean Corpuscular Hemoglobin 29.1 Mean Corpuscular Hemoglobin Concent 34.0 Red Cell Distribution Width 13.0 Platelet Count 348 Mean Platelet Volume 6.5 Neutrophils (%) (Auto) 83.7 Lymphocytes (%) (Auto) 11.7 Monocytes (%) (Auto) 3.2 Eosinophils (%) (Auto) 1.0 Basophils (%) (Auto) 0.4 Neutrophils # (Auto) 11.8 Lymphocytes # (Auto) 1.6 Monocytes # (Auto) 0.5 Eosinophils # (Auto) 0.1 Basophils # (Auto) 0.1 CBC Comment DIFF FINAL Differential Comment Blood Urea Nitrogen 8 Creatinine 0.73 Random Glucose 75 Total Protein 8.5 Albumin 3.6 Calcium Level 9.2 Magnesium Level 2.2 Alkaline Phosphatase 72 Aspartate Amino Transf (AST/SGOT) 17 Alanine Aminotransferase (ALT/SGPT) 11 Total Bilirubin 0.5 Sodium Level 139 Potassium Level 3.6 Chloride Level 104 Carbon Dioxide Level 24.9 Anion Gap 10 Estimat Glomerular Filtration Rate 93 C-Reactive Protein 8.42 Date/Time Source Procedure Growth Status 06/02/17 01:55 Blood Peripheral Aerobic Blood Culture Pending Received 06/02/17 01:55 Blood Peripheral Anaerobic Blood Culture Pending Received Result Diagram: 06/02/17 0150 06/02/17 0150 Imaging Last Impressions Lumbar Spine MRI 06/02/17 0000 Signed Impressions: Service Date/Time: May 07:43 - CONCLUSION: 1. No evidence of abscess. 2. New mild reactive appearing marrow edema and bony endplates at L4-5 with mild apparent reactive enhancement. There is slight enhancement in posterior disc margin the disc bulge is present. This could be degenerative there is no definite evidence of discitis. 3. Mild degenerative change involving the lower facet joints. Samson Schaffer MD Assessment and Plan Assessment and Plan Abnormal MRI suspicious for discitis IVDA h/o endocarditis Chronic back with new worsening Leucocytosis Recs: DC Zosyn IV DC vanco IV Dw Radiologist recommends WBC scan. If abnormal will assess if IR guided drainage possible. kb [place] and Martha Lobato to cover for ar 06/03 to 06/05. Miguelina Chase MD Jun 02, 2017 14:30
[2017-06-02 15:23] VITALS: BP 109/60; PULSE 88; RESP 16; TEMP 98.3; O2SAT 99
[2017-06-02] MEDS ORDERED: HYDROmorphone HCL PF 0.5 MG/0.5 ML SYRINGE IV PUSH ONE (17:00)
[2017-06-02 20:54] VITALS: PULSE 94
[2017-06-02 21:19] VITALS: BP 110/64; PULSE 92; RESP 18; TEMP 98.4; O2SAT 100
[2017-06-03] VITALS (7 sets, daily range): BP systolic 109–122; BP diastolic 62–89; PULSE 86–108; RESP 16–18; TEMP 97.8–98.7; O2SAT 100
[2017-06-03] MEDS: CYCLOBENZAPRINE HCL 10 MG TAB PO PRN ×3 (02:02→19:30)
[2017-06-03] MEDS: SODIUM CHLOR 0.9% 1000 ML INJ 1,000 ML IV SCH ×4 (03:21→21:48)
[2017-06-03] MEDS: ACETAMINOPHEN/HYDROcodone 325 MG/10 MG TAB PO PRN (03:28)
[2017-06-03 07:26] LABS: AUTOMATED NEUTROPHIL # 8.3 TH/MM3 (1.8-7.7); BASOPHIL # 0.1 TH/MM3 (0-0.2); BASOPHIL % 0.7 % (0.0-2.0); EOSINOPHIL # 0.2 TH/MM3 (0-0.4); HEMATOCRIT 38.5 % (35.0-46.0); HEMOGLOBIN 12.8 GM/DL (11.6-15.3); LYMPH % 19.8 % (9.0-44.0); LYMPHOCYTE # 2.2 TH/MM3 (1.0-4.8); MEAN CELL VOLUME 86.1 FL (80.0-100.0); MEAN CORPUSCULAR HEMOGLOBIN 28.7 PG (27.0-34.0); MEAN CORPUSCULAR HGB CONC 33.3 % (32.0-36.0); MEAN PLATELET VOLUME 6.7 FL (7.0-11.0); MONO % 4.1 % (0.0-8.0); MONOCYTE # 0.5 TH/MM3 (0-0.9); NEUT % 73.4 % (16.0-70.0); PLATELET COUNT 251 TH/MM3 (150-450); RED BLOOD COUNT 4.47 MIL/MM3 (4.00-5.30); WHITE BLOOD COUNT 11.3 TH/MM3 (4.0-11.0)
[2017-06-03 08:04] LABS: BICARBONATE 19.2 MEQ/L (21.0-32.0); CALCIUM 9.1 MG/DL (8.5-10.1); CREATININE 0.63 MG/DL (0.50-1.00)
[2017-06-03] MEDS ORDERED: HYDROmorphone HCL PF 0.5 MG/0.5 ML SYRINGE IV PUSH ONE (09:15)
[2017-06-03] MEDS: SODIUM CHLORIDE 0.9% FLUSH 10 ML FLUSH IV FLUSH SCH ×2 (09:26→21:48)
[2017-06-03] MEDS: DOCUSATE SODIUM 50 MG/SENNA 8.6 MG TAB PO SCH ×2 (09:26→21:00)
[2017-06-03] MEDS ORDERED: oxyCODONE/ACETAMINOPHEN 5 MG/325 MG TAB PO PRN (09:45)
[2017-06-03] MEDS ORDERED: Vancomycin Consult Pharmacy 1 EA OTHER SCH (09:45)
--- NOTE | 2017-06-03 09:49 | HHI.PR ---
Subjective Remarks Follow up on patient with back pain. Patient seen and examined. Patient complains of significant back pain not controlled with current pain medication regimen. She is requesting something stronger for pain. She has not been able to eat or sleep due to her severe discomfort. She denies any fever but states that she has been sweating frequently throughout the day and night. She denies any nausea vomiting or abdominal pain. She denies any chest pain or shortness of breath. Urine drug screen was positive for cocaine and cannabis. Patient states she thinks she might have snorted some cocaine recently. Objective Vitals Vital Signs Date Time Temp Pulse Resp B/P (MAP) Pulse Ox O2 Delivery O2 Flow Rate FiO2 06/03/17 07:53 97.8 95 18 122/89 (100) 100 06/03/17 04:05 98.1 93 16 109/69 (82) 100 06/03/17 00:43 98.5 86 16 114/66 (82) 100 06/02/17 21:19 98.4 92 18 110/64 (79) 100 06/02/17 20:54 94 06/02/17 15:23 98.3 88 16 109/60 (76) 99 I/O 06/02/17 06/02/17 06/02/17 06/03/17 06/03/17 06/03/17 07:00 15:00 23:00 07:00 15:00 23:00 Intake Total 1350 ml 1000 ml Balance 1350 ml 1000 ml Intake IV Total 1350 ml 1000 ml # Voids 2 Result Diagram: 06/03/17 0600 06/03/17 0642 Imaging Last Impressions Lumbar Spine MRI 06/02/17 0000 Signed Impressions: Service Date/Time: May 07:43 - CONCLUSION: 1. No evidence of abscess. 2. New mild reactive appearing marrow edema and bony endplates at L4-5 with mild apparent reactive enhancement. There is slight enhancement in posterior disc margin the disc bulge is present. This could be degenerative there is no definite evidence of discitis. 3. Mild degenerative change involving the lower facet joints. Samson Schaffer MD Objective Remarks GENERAL: WDWN young female patient. Awake and alert. Appears significantly uncomfortable secondary to back pain. SKIN: Warm and dry. HEAD: Atraumatic. Normocephalic. EYES: Pupils equal round and reactive. Extraocular motions intact. No scleral icterus. No injection or drainage. ENT: Nose without bleeding or purulent drainage. Airway patent. MMM. NECK: Trachea midline. CARDIOVASCULAR: Regular rate and rhythm without murmurs, gallops, or rubs. RESPIRATORY: Clear to auscultation. Breath sounds equal bilaterally. No wheezes , rales, or rhonchi. GASTROINTESTINAL: Abdomen soft, non-tender, nondistended. MUSCULOSKELETAL: Extremities without clubbing, cyanosis, or edema. No calf tenderness. Unable to assess ROM secondary to pain. (+)right SLR. NEUROLOGICAL: Awake and alert. Cranial nerves II through XII grossly intact. Motor and sensory grossly within normal limits. Normal speech. PSYCHIATRIC: Tearful, calm and cooperative. Medications and IVs Current Medications Medications (Trade) Dose Ordered Sig/Elisabet Route Start Time Stop Time Status Last Admin Sodium Chloride 1,000 ml @ 80 mls/hr [id number] IV 06/02/17 02:38 06/03/17 03:21 (NS Flush) 2 ml UNSCH PRN IV FLUSH 06/02/17 02:45 (NS Flush) 2 ml BID IV FLUSH 06/02/17 09:00 06/02/17 19:39 (Tylenol) 650 mg Q4H PRN PO 06/02/17 02:45 06/02/17 07:34 (Zofran Inj) 4 mg Q6H PRN IVP 06/02/17 02:45 (Narcan Inj) 0.4 mg UNSCH PRN IV PUSH 06/02/17 02:45 (Micki-Colace) 1 tab BID PO 06/02/17 09:00 06/02/17 19:40 (Milk Of Magnesia Liq) 30 ml Q12H PRN PO 06/02/17 02:45 (Senokot) 17.2 mg Q12H PRN PO 06/02/17 02:45 (Dulcolax Supp) 10 mg DAILY PRN RECTAL 06/02/17 02:45 (Lactulose Liq) 30 ml DAILY PRN PO 06/02/17 02:45 (Flexeril) 10 mg Q8H PRN PO 06/02/17 03:45 06/03/17 02:02 (Lorman 5-325 Mg) 1 tab Q6H PRN PO 06/02/17 13:15 (Lorman 10-325 Mg) 1 tab Q6H PRN PO 06/02/17 13:15 06/03/17 03:28 A/P Assessment and Plan 32-year-old female with past medical history significant for IV drug abuse and history of endocarditis presents to the emergency department for evaluation of lower back pain. Bacteremia Blood culture positive for GPC History of endocarditis treated with extensive IV antibiotics 2 years ago -Obtain echocardiogram -IV vancomycin ordered, pharmacy to dose -We will hold off on repeat blood cultures at this time as patient has been off IV antibiotics Back pain, not controlled MRI of the lumbar spine showed disc bulges at L2-3 and L4-5 with reactive endplate edema at L4-5. Concern for discitis versus possible abscess. MRI with contrast shows new mild reactive appearing marrow edema and bony endplates at L45 with mild apparent reactive enhancement ID following. Antibiotics discontinued. Patient undergoing white blood cell scan for further evaluation. If abnormal, possible IR guided drainage. -Increase pain management regimen from Lorman to Percocet -continue to monitor white count History of IV drug abuse Patient has not used in past 6-8 months, currently on Suboxone as outpatient Urine drug screen positive for cannabis and cocaine -Discussed cessation, counseling -monitor opiate use FEN Regular diet Electrolytes: Monitor and replete as needed NS at 125 cc/hour Discharge Planning Not ready for discharge, bacteremic, BCX positive for GPC, ID following Martha Sierra Jun 03, 2017 09:49
--- NOTE | 2017-06-03 11:12 | RADRPT ---
EXAM DATE/TIME: 06/02/2017 16:20 [facility] COMPARISON: MRI LUMBAR SPINE W & W/O CONTRAST, June 02, 2017, 7:43. INDICATIONS : Epidural abscess. Back pain. DOSE: 21.8 mCi Tc99m Ceretec labeled white blood cells IV PLANAR IMAGIN min, 3 hrs, 20 hrs SPECT IMAGIN hrs IMAGNG: SPECT/CT imaging with fusion was performed. RADIATION DOSE: 4.57 CTDIvol (mGy) MEDICAL HISTORY : Endocarditis. Substance abuse. SURGICAL HISTORY : None. ENCOUNTER: Initial ACUITY: 1 day PAIN SCALE: 6/10 LOCATION: Right Lower back. TECHNIQUE: Following the in vitro labeling of autologous white cells and reinjection, whole body scan was perfor med at the specified times. Imaging was performed at specified times in sagittal, axial and coronal planes. Attenuation correction was performed with computed tomography and both the attenuation corre ction and non-attenuation corrected data sets were reviewed. FINDINGS: There is no abnormal biodistribution of radiotracer. There is some increased activity in the right lo wer quadrant corresponding with the dunbar of the cecum. There is no evidence of thickening or inflamm ation. On the whole body images there no abnormal areas of activity within the spine. Lungs are gross ly clear. Pelvic activity is unremarkable CONCLUSION: Diffuse activity throughout the bones, bladder, spleen and liver as expected. Some activity in the ri ght lower quadrant corresponding with the cecum however there is no evidence of wall thickening or ab normality on the CT portion of the study. Spencer Alvarez MD on June 03, 2017 at 11:07 Board Certified Radiologist. This report was verified electronically.
[2017-06-03] MEDS: VANCOMYCIN INJ 1,250 MG in SODIUM CHLOR 0.9% 250 ML INJ 250 ML IV SCH (11:33)
[2017-06-03] MEDS ORDERED: PHARMACY ORDERED LAB ONE (11:45)
[2017-06-03] MEDS: oxyCODONE/ACETAMINOPHEN 10 MG/325 MG TAB PO PRN ×2 (14:05→21:48)
[2017-06-04] MEDS: VANCOMYCIN INJ 1,250 MG in SODIUM CHLOR 0.9% 250 ML INJ 250 ML IV SCH ×2 (00:44→10:47)
[2017-06-04 04:06] VITALS: BP 134/75; PULSE 94; RESP 16; TEMP 98.5; O2SAT 100
[2017-06-04] MEDS: CYCLOBENZAPRINE HCL 10 MG TAB PO PRN (04:11)
[2017-06-04] MEDS: SODIUM CHLOR 0.9% 1000 ML INJ 1,000 ML IV SCH ×4 (05:39→22:53)
[2017-06-04] MEDS: oxyCODONE/ACETAMINOPHEN 10 MG/325 MG TAB PO PRN ×3 (05:43→18:14)
[2017-06-04 07:44] VITALS: PULSE 79
[2017-06-04 08:00] VITALS: BP 119/66; PULSE 81; RESP 20; TEMP 96.1; O2SAT 100
[2017-06-04] MEDS: DOCUSATE SODIUM 50 MG/SENNA 8.6 MG TAB PO SCH ×2 (08:57→20:10)
[2017-06-04] MEDS: ENOXAPARIN SODIUM 40 MG/0.4 ML SYRINGE SQ SCH (09:02)
[2017-06-04] MEDS: MORPHINE SULFATE 2 MG/ML SYRINGE IV PUSH PRN ×4 (09:03→22:53)
[2017-06-04] MEDS: SODIUM CHLORIDE 0.9% FLUSH 10 ML FLUSH IV FLUSH SCH ×2 (09:06→20:10)
--- NOTE | 2017-06-04 09:55 | HHI.PR ---
Subjective Remarks Follow up on patient with back pain. Patient seen and examined. Blood cultures positive for Viridans Streptococcus. ID following. Ceretec scan not suggestive of lumbar infection. Patient continues to complain of severe right sided low back pain. She is having severe muscle spasms. She continues to have sweats. She denies any chest pain, palpitations or shortness of breath. She denies any N/V or abdominal pain. She denies any bladder or bowel difficulties. Objective Vitals Vital Signs Date Time Temp Pulse Resp B/P (MAP) Pulse Ox O2 Delivery O2 Flow Rate FiO2 06/04/17 07:44 79 06/04/17 04:06 98.5 94 16 134/75 (94) 100 06/03/17 23:29 98.5 95 16 122/71 (88) 100 06/03/17 20:12 98.0 104 16 122/67 (85) 100 06/03/17 17:47 98.7 108 18 116/62 (80) 100 06/03/17 11:41 98.7 99 18 122/75 (91) 100 I/O 06/03/17 06/03/17 06/03/17 06/04/17 06/04/17 06/04/17 07:00 15:00 23:00 07:00 15:00 23:00 Intake Total 1000 ml 480 ml Balance 1000 ml 480 ml Intake Oral 480 ml IV Total 1000 ml # Voids 2 # Bowel Movements 1 Result Diagram: 06/03/17 0600 06/03/17 0642 Imaging Last Impressions Tumor Localization 06/02/17 1016 Signed Impressions: Service Date/Time: May 16:20 - CONCLUSION: Diffuse activity throughout the bones, bladder, spleen and liver as expected. Some activity in the right lower quadrant corresponding with the cecum however there is no evidence of wall thickening or abnormality on the CT portion of the study. Spencer Alvarez MD Lumbar Spine MRI 06/02/17 0000 Signed Impressions: Service Date/Time: May 07:43 - CONCLUSION: 1. No evidence of abscess. 2. New mild reactive appearing marrow edema and bony endplates at L4-5 with mild apparent reactive enhancement. There is slight enhancement in posterior disc margin the disc bulge is present. This could be degenerative there is no definite evidence of discitis. 3. Mild degenerative change involving the lower facet joints. Samson Schaffer MD Objective Remarks GENERAL: WDWN young female patient. Awake and alert. Appears significantly uncomfortable secondary to back pain. SKIN: Warm and dry. HEAD: Atraumatic. Normocephalic. EYES: Pupils equal round and reactive. Extraocular motions intact. No scleral icterus. No injection or drainage. ENT: Nose without bleeding or purulent drainage. Airway patent. MMM. NECK: Trachea midline. CARDIOVASCULAR: Regular rate and rhythm without murmurs, gallops, or rubs. RESPIRATORY: Clear to auscultation. Breath sounds equal bilaterally. No wheezes , rales, or rhonchi. GASTROINTESTINAL: Abdomen soft, non-tender, nondistended. MUSCULOSKELETAL: Extremities without clubbing, cyanosis, or edema. No calf tenderness. Unable to assess ROM secondary to pain. (+)right SLR. NEUROLOGICAL: Awake and alert. Cranial nerves II through XII grossly intact. Motor and sensory grossly within normal limits. Normal speech. PSYCHIATRIC: Depressed mood. Calm and cooperative. Procedures None Medications and IVs Current Medications Medications (Trade) Dose Ordered Sig/Elisabet Route Start Time Stop Time Status Last Admin Sodium Chloride 1,000 ml @ 125 mls/hr Q8H IV 06/02/17 02:38 06/04/17 09:01 (NS Flush) 2 ml UNSCH PRN IV FLUSH 06/02/17 02:45 (NS Flush) 2 ml BID IV FLUSH 06/02/17 09:00 06/03/17 21:48 (Tylenol) 650 mg Q4H PRN PO 06/02/17 02:45 06/02/17 07:34 (Zofran Inj) 4 mg Q6H PRN IVP 06/02/17 02:45 (Narcan Inj) 0.4 mg UNSCH PRN IV PUSH 06/02/17 02:45 (Micki-Colace) 1 tab BID PO 06/02/17 09:00 06/03/17 09:26 (Milk Of Magnesia Liq) 30 ml Q12H PRN PO 06/02/17 02:45 (Senokot) 17.2 mg Q12H PRN PO 06/02/17 02:45 (Dulcolax Supp) 10 mg DAILY PRN RECTAL 06/02/17 02:45 (Lactulose Liq) 30 ml DAILY PRN PO 06/02/17 02:45 Pharmacy Profile Note 0 ml @ 0 mls/hr UNSCH OTHER 06/03/17 09:45 (Percocet 10-325 Mg) 1 tab Q6H PRN PO 06/03/17 09:45 06/04/17 05:43 (Percocet 5-325 Mg) 1 tab Q6H PRN PO 06/03/17 09:45 Vancomycin HCl 1250 mg/Sodium Chloride 262.5 ml @ 250 mls/hr Q12H IV 06/03/17 11:00 06/04/17 00:44 ([facility] Ordered Lab Info) SPECIFIC LAB TO BE DRAWN:VANCO TROUGH DATE TO... ONCE ONCE .XX 06/04/17 22:45 06/04/17 22:46 Methocarbamol 1000 mg/Sodium Chloride 250 ml @ 166.667 mls/hr Q8HR IV 06/04/17 14:00 06/07/17 07:29 (Morphine Inj) 2 mg Q3H PRN IV PUSH 06/04/17 08:30 06/04/17 09:03 (Lovenox Inj) 40 mg Q24H SQ 06/04/17 09:00 06/04/17 09:02 A/P Assessment and Plan 32-year-old female with past medical history significant for IV drug abuse and history of endocarditis presents to the emergency department for evaluation of lower back pain. Bacteremia Blood cultures positive for Streptococcus Viridans in 4/4 bottles History of endocarditis treated with extensive IV antibiotics 2 years ago ID following, appreciate assistance -Obtain echocardiogram, ordered/pending -Continue on IV vancomycin, pharmacy to dose -follow up on ID/sensitivities -repeat blood cx ordered this am Back pain, not controlled MRI of the lumbar spine showed disc bulges at L2-3 and L4-5 with reactive endplate edema at L4-5. Concern for discitis versus possible abscess. MRI with contrast shows new mild reactive appearing marrow edema and bony endplates at L45 with mild apparent reactive enhancement CRP 8.42 ID following. Antibiotics discontinued. Ceretec WBC shows no e/o infection in lumbar spine. ?degenerative Patient c/o severe back pain and muscle spasms -Continue on Percocet -IV Morphine for breakthrough pain -D/C prn Flexeril. IV Robaxin q8h x 3 days. -trial Lidoderm patch alternate with K thermia -PT History of IV drug abuse Patient has not used in past 6-8 months, currently on Suboxone as outpatient Urine drug screen positive for cannabis and cocaine -Discussed cessation, counseling -monitor opiate use DVT prophylaxis -Lovenox sq FEN Regular diet Electrolytes: Monitor and replete as needed NS at 125 cc/hour Discharge Planning Not ready for discharge, bacteremic, BCX positive for strept viridans, repeat BCX pending, Echo pending, ID following Martha Sierra Jun 04, 2017 09:55
[2017-06-04 12:00] VITALS: BP 119/63; PULSE 97; RESP 20; TEMP 98.1; O2SAT 100
[2017-06-04] MEDS: METHOCARBAMOL INJ 1,000 MG in SODIUM CHLOR 0.9% 250 ML INJ 240 ML IV SCH ×2 (15:06→22:53)
--- NOTE | 2017-06-04 19:01 | ECHRPT ---
Indication: POSS SEPSIS, ENDOCARDTIS CONCLUSIONS Normal left ventricular size. EF @ 55% Wall thickness is normal. The left atrial size is mildly dilated. The right atrial size is [id number] dilated. Aortic valve sclerosis is present. Findings consistent with vegetation on the posterior leaflet of the tricuspid valve. There is mild tricuspid valve regurgitation. The estimated pulmonary arterial pressure is 33 mmHg. Trivial pulmonary valve regurgitation. BP: 122 / 89 HR: 95 Rhythm: Sinus MEASUREMENTS (Male / Female) Normal Values Technical Quality:Fair 2D ECHO LV Diastolic Diameter PLAX 4.7 cm 4.2 - 5.9 / 3.9 - 5.3 cm LV Systolic Diameter PLAX 3.3 cm IVS Diastolic Thickness 0.9 cm 0.6 - 1.0 / 0.6 - 0.9 cm LVPW Diastolic Thickness 0.9 cm 0.6 - 1.0 / 0.6 - 0.9 cm LV Relative Wall Thickness 0.4 RV Internal Dim ED PLAX 2.5 cm LVOT Diameter 1.9 cm Aortic Root Diameter 3.0 cm LA Systolic Diameter LX 3.1 cm 3.0 - 4.0 / 2.7 - 3.8 cm M-MODE AV Cusp Separation MM 2.1 cm DOPPLER AV Peak Velocity 135.0 cm/s AV Peak Gradient 7.3 mmHg AV Mean Gradient 4.0 mmHg AV Velocity Time Integral 21.5 cm LVOT Peak Velocity 84.2 cm/s LVOT Peak Gradient 2.8 mmHg LVOT Velocity Time Integral 13.0 cm AV Area Cont Eq vti 1.7 cm AV Area Cont Eq pk 1.8 cm Mitral E Point Velocity 61.2 cm/s Mitral A Point Velocity 51.3 cm/s Mitral E to A Ratio 1.2 LV E' Lateral Velocity 19.7 cm/s Mitral E to LV E' Lateral Ratio 3.1 LV E' Septal Velocity 14.5 cm/s Mitral E to LV E' Septal Ratio 4.2 TR Peak Velocity 238.0 cm/s TR Peak Gradient 22.7 mmHg Right Atrial Pressure 10.0 mmHg Pulmonary Artery Systolic Pressu 32.7 mmHg Right Ventricular Systolic Press 32.7 mmHg PV Peak Velocity 73.7 cm/s PV Peak Gradient 2.2 mmHg FINDINGS LEFT VENTRICLE Normal left ventricular size. Wall thickness is normal. The left ventricular systolic function is normal with an estimated ejection fraction in the range of 60-65%. RIGHT VENTRICLE Normal right ventricular size and systolic function. LEFT ATRIUM The left atrial size is mildly dilated. RIGHT ATRIUM The right atrial size is [id number] dilated. ATRIAL SEPTUM No atrial level shunt is demonstrated by color flow Doppler interrogation. AORTA The aortic root and proximal ascending aorta are not well visualized. MITRAL VALVE Structurally normal mitral valve. No mitral valve stenosis or regurgitation. AORTIC VALVE Aortic valve sclerosis is present. TRICUSPID VALVE Findings consistent with vegetation on the posterior leaflet of the tricuspid valve. There is mild tricuspid valve regurgitation. The estimated pulmonary arterial pressure is 33 mmHg. PULMONARY VALVE Trivial pulmonary valve regurgitation. VESSELS The inferior vena cava is normal in size. PERICARDIUM No pericardial effusion. Wilfredo Lobato MD, FACC, FSCAI (Electronically Signed) Final Date:04 June 2017 19:00
[2017-06-04 20:02] VITALS: BP 130/79; PULSE 99; RESP 20; TEMP 99.2; O2SAT 95
[2017-06-04] MEDS ORDERED: PHARMACY ORDERED LAB ONE (22:45)
[2017-06-04 23:41] VITALS: PULSE 90
[2017-06-05] VITALS (9 sets, daily range): BP systolic 111–123; BP diastolic 50–68; PULSE 78–98; RESP 20; TEMP 97.8–98.8; O2SAT 100
[2017-06-05] MEDS: VANCOMYCIN INJ 1,250 MG in SODIUM CHLOR 0.9% 250 ML INJ 250 ML IV SCH ×2 (00:12→11:57)
[2017-06-05] MEDS: oxyCODONE/ACETAMINOPHEN 10 MG/325 MG TAB PO PRN ×4 (00:12→17:53)
[2017-06-05] MEDS: MORPHINE SULFATE 2 MG/ML SYRINGE IV PUSH PRN ×4 (03:06→20:54)
[2017-06-05] MEDS: SODIUM CHLOR 0.9% 1000 ML INJ 1,000 ML IV SCH (05:39)
[2017-06-05] MEDS: METHOCARBAMOL INJ 1,000 MG in SODIUM CHLOR 0.9% 250 ML INJ 240 ML IV SCH ×3 (06:07→20:53)
[2017-06-05] MEDS: SODIUM CHLORIDE 0.9% FLUSH 10 ML FLUSH IV FLUSH SCH ×2 (09:00→20:54)
[2017-06-05] MEDS: DOCUSATE SODIUM 50 MG/SENNA 8.6 MG TAB PO SCH ×2 (09:09→20:53)
[2017-06-05] MEDS: ENOXAPARIN SODIUM 40 MG/0.4 ML SYRINGE SQ SCH (09:09)
[2017-06-05] MEDS: LIDOCAINE HCL 5% PATCH T-DERMAL SCH (09:11)
[2017-06-05] MEDS: SODIUM CHLORIDE 0.9% FLUSH 10 ML FLUSH IV FLUSH PRN (09:14)
--- NOTE | 2017-06-05 10:16 | HHI.PR ---
Subjective Remarks Patient reports persistent back pain. No other issues. Objective Vitals Vital Signs Date Time Temp Pulse Resp B/P (MAP) Pulse Ox O2 Delivery O2 Flow Rate FiO2 06/05/17 09:54 78 06/05/17 07:33 97.8 92 20 117/66 (83) 100 06/05/17 04:46 98.7 83 20 123/62 (82) 100 06/05/17 00:31 98.8 89 20 123/66 (85) 100 06/04/17 23:41 90 06/04/17 20:02 99.2 99 20 130/79 (96) 95 06/04/17 12:00 98.1 97 20 119/63 (81) 100 I/O 06/04/17 06/04/17 06/04/17 06/05/17 06/05/17 06/05/17 07:00 15:00 23:00 07:00 15:00 23:00 Intake Total 1543 ml 250 ml Balance 1543 ml 250 ml Intake Oral 720 ml IV Total 823 ml 250 ml # Voids 7 2 # Bowel Movements 1 Result Diagram: 06/03/17 0600 06/03/17 0642 Imaging Last Impressions Tumor Localization 06/02/17 1016 Signed Impressions: Service Date/Time: May 16:20 - CONCLUSION: Diffuse activity throughout the bones, bladder, spleen and liver as expected. Some activity in the right lower quadrant corresponding with the cecum however there is no evidence of wall thickening or abnormality on the CT portion of the study. Spencer Alvarez MD Lumbar Spine MRI 06/02/17 0000 Signed Impressions: Service Date/Time: May 07:43 - CONCLUSION: 1. No evidence of abscess. 2. New mild reactive appearing marrow edema and bony endplates at L4-5 with mild apparent reactive enhancement. There is slight enhancement in posterior disc margin the disc bulge is present. This could be degenerative there is no definite evidence of discitis. 3. Mild degenerative change involving the lower facet joints. Samson Schaffer MD Objective Remarks GENERAL: This is a well-nourished, well-developed patient, in no apparent distress. CARDIOVASCULAR: Regular rate and rhythm without murmurs, gallops, or rubs. RESPIRATORY: Clear to auscultation. Breath sounds equal bilaterally. No wheezes , rales, or rhonchi. GASTROINTESTINAL: Abdomen soft, non-tender, nondistended. Normal active bowel sounds MUSCULOSKELETAL: Right lower paraspinal muscles tender to palpation. Extremities without clubbing, cyanosis, or edema. NEURO: Alert & Oriented x4 to person, place, time, situation. Moves all ext x4 Procedures None A/P Assessment and Plan 32-year-old female with past medical history significant for IV drug abuse and history of endocarditis presents to the emergency department for evaluation of lower back pain. Bacteremia/Tricuspid valve endocarditis Blood cultures positive for Streptococcus Viridans in 4/4 bottles History of endocarditis treated with extensive IV antibiotics 2 years ago 2D echo confirmed vegetation of the tricuspid valve. ID following, appreciate assistance -Continue on IV vancomycin, pharmacy to dose -follow up on ID/sensitivities - Follow repeat blood cx Back pain, not controlled MRI of the lumbar spine showed disc bulges at L2-3 and L4-5 with reactive endplate edema at L4-5. Concern for discitis. MRI with contrast shows new mild reactive appearing marrow edema and bony endplates at L45 with mild apparent reactive enhancement Patient c/o severe back pain and muscle spasms -Continue on Percocet, RObaxin -IV Morphine for breakthrough pain -trial Lidoderm patch alternate with K thermia -PT History of IV drug abuse Patient has not used IV drugs for the past 6-8 months per her report, currently on Suboxone as outpatient Urine drug screen positive for cannabis and cocaine -Discussed cessation, counseling -monitor opiate use DVT prophylaxis -Lovenox sq Desi Jurado MD Jun 05, 2017 10:16
[2017-06-05] MEDS ORDERED: ceFAZolin 2 GM PREMIX 50 ML IV SCH (13:00)
--- NOTE | 2017-06-05 13:57 | HHI.IDPN ---
Subjective Subjective Remarks ID X cover for Dr Chase chart reviewed 32 yo with IVDU (2 mos ago) L spine pain MRI changes cw diskitis + BC vir strep on vanco pain better no fever 2 D echo positive for veg's on tricuspid valve Antibiotics vanco Allergies: Coded Allergies: No Known Allergies (Verified Allergy, Unknown, 06/02/17) Objective . Vital Signs Date Time Temp Pulse Resp B/P (MAP) Pulse Ox O2 Delivery O2 Flow Rate FiO2 06/05/17 11:41 98.6 91 20 114/66 (82) 100 06/05/17 09:54 78 06/05/17 07:33 97.8 92 20 117/66 (83) 100 06/05/17 04:46 98.7 83 20 123/62 (82) 100 06/05/17 00:31 98.8 89 20 123/66 (85) 100 06/04/17 23:41 90 06/04/17 20:02 99.2 99 20 130/79 (96) 95 06/05/17 06/05/17 06/06/17 15:00 23:00 07:00 Intake Total 1033 ml Balance 1033 ml IV Total 1033 ml . Microbiology Date/Time Source Procedure Growth Status 06/04/17 10:07 Blood Peripheral Aerobic Blood Culture - Preliminary NO GROWTH IN 1 DAY Resulted 06/04/17 10:07 Blood Peripheral Anaerobic Blood Culture - Preliminary NO GROWTH IN 1 DAY Resulted 06/04/17 10:07 Blood Peripheral Aerobic Blood Culture - Preliminary NO GROWTH IN 1 DAY Resulted 06/04/17 10:07 Blood Peripheral Anaerobic Blood Culture - Preliminary NO GROWTH IN 1 DAY Resulted Imaging Last Impressions Tumor Localization 06/02/17 1016 Signed Impressions: Service Date/Time: May 16:20 - CONCLUSION: Diffuse activity throughout the bones, bladder, spleen and liver as expected. Some activity in the right lower quadrant corresponding with the cecum however there is no evidence of wall thickening or abnormality on the CT portion of the study. Spencer Alvarez MD Lumbar Spine MRI 06/02/17 0000 Signed Impressions: Service Date/Time: May 07:43 - CONCLUSION: 1. No evidence of abscess. 2. New mild reactive appearing marrow edema and bony endplates at L4-5 with mild apparent reactive enhancement. There is slight enhancement in posterior disc margin the disc bulge is present. This could be degenerative there is no definite evidence of discitis. 3. Mild degenerative change involving the lower facet joints. Samson Schaffer MD Physical Exam GENERAL: This is a well-nourished, well-developed patient, in no apparent distress. SKIN: No rashes, ecchymoses or lesions. Cool and dry. HEAD: Atraumatic. Normocephalic. No temporal or scalp tenderness. EYES: Pupils equal round and reactive. Extraocular motions intact. No scleral icterus. No injection or drainage. ENT: Nose without bleeding, purulent drainage or septal hematoma. Throat without erythema, tonsillar hypertrophy or exudate. Uvula midline. Airway patent. NECK: Trachea midline. No JVD or lymphadenopathy. Supple, nontender, no meningeal signs. CARDIOVASCULAR: Regular rate and rhythm without murmurs, gallops, or rubs. RESPIRATORY: Clear to auscultation. Breath sounds equal bilaterally. No wheezes , rales, or rhonchi. GASTROINTESTINAL: Abdomen soft, non-tender, nondistended. No hepato-splenomegaly , or palpable masses. No guarding. MUSCULOSKELETAL: Extremities without clubbing, cyanosis, or edema. No joint tenderness, effusion, or edema noted. No calf tenderness. Negative Homans sign bilaterally. BACK: L spine tender to palpation NEUROLOGICAL: Awake and alert. Cranial nerves II through XII intact. Motor and sensory grossly within normal limits. Five out of 5 muscle strength in all muscle groups. Normal speech. Assessment & Plan Remarks Abnormal MRI suspicious for discitis, L spine BViridans strep bacteremia - - source endocarditis, diskitis IVDA h/o endocarditis Chronic back with new worsening Leucocytosis: improving Recs: change abx to CFTX 2 gm daily fu repeat clx Shweta Lobato MD Jun 05, 2017 13:57
[2017-06-05] MEDS: cefTRIAXone INJ 2,000 MG in SODIUM CHLORIDE 0.9% INJ 100 ML IV SCH (14:20)
[2017-06-05] MEDS: REMOVE OLD LIDOCAINE PATCH T-DERMAL SCH (20:55)
[2017-06-05] MEDS: ZOLPIDEM TARTRATE 10 MG TAB PO PRN (22:41)
[2017-06-06] VITALS (9 sets, daily range): BP systolic 114–133; BP diastolic 0–81; PULSE 77–101; RESP 18–20; TEMP 97–98.6; O2SAT 99–100
[2017-06-06] MEDS: oxyCODONE/ACETAMINOPHEN 10 MG/325 MG TAB PO PRN ×4 (00:22→18:59)
[2017-06-06] MEDS: MORPHINE SULFATE 2 MG/ML SYRINGE IV PUSH PRN ×3 (02:25→16:22)
[2017-06-06] MEDS: METHOCARBAMOL INJ 1,000 MG in SODIUM CHLOR 0.9% 250 ML INJ 240 ML IV SCH ×3 (06:04→21:51)
[2017-06-06] MEDS: DOCUSATE SODIUM 50 MG/SENNA 8.6 MG TAB PO SCH ×2 (08:40→21:51)
[2017-06-06] MEDS: ENOXAPARIN SODIUM 40 MG/0.4 ML SYRINGE SQ SCH (08:41)
[2017-06-06] MEDS: LIDOCAINE HCL 5% PATCH T-DERMAL SCH (08:41)
[2017-06-06] MEDS: SODIUM CHLORIDE 0.9% FLUSH 10 ML FLUSH IV FLUSH SCH ×2 (08:44→21:51)
[2017-06-06 08:56] LABS: HEMATOCRIT 32.7 % (35.0-46.0); MEAN CELL VOLUME 84.4 FL (80.0-100.0); MEAN CORPUSCULAR HEMOGLOBIN 28.4 PG (27.0-34.0); MEAN CORPUSCULAR HGB CONC 33.6 % (32.0-36.0); MEAN PLATELET VOLUME 6.2 FL (7.0-11.0); PLATELET COUNT 354 TH/MM3 (150-450); RED BLOOD COUNT 3.88 MIL/MM3 (4.00-5.30); RED CELL DISTRIBUTION WIDTH 12.9 % (11.6-17.2)
[2017-06-06 09:28] LABS: BICARBONATE 25.4 MEQ/L (21.0-32.0); CALCIUM 8.7 MG/DL (8.5-10.1); CREATININE 0.61 MG/DL (0.50-1.00)
[2017-06-06] MEDS: cefTRIAXone INJ 2,000 MG in SODIUM CHLORIDE 0.9% INJ 100 ML IV SCH (12:58)
--- NOTE | 2017-06-06 15:16 | HHI.PR ---
Subjective Remarks Patient reports back pain is slightly better today. No other issues. Objective Vitals Vital Signs Date Time Temp Pulse Resp B/P (MAP) Pulse Ox O2 Delivery O2 Flow Rate FiO2 06/06/17 12:03 98.5 100 20 122/63 (82) 100 06/06/17 09:19 82 06/06/17 08:57 97.9 77 18 114/71 (85) 100 06/06/17 05:00 97.4 81 18 128/70 (89) 100 06/06/17 01:13 101 06/06/17 01:00 98.6 98 20 120/81 (94) 99 06/05/17 20:22 98.1 98 20 118/50 (72) 100 06/05/17 16:05 96 06/05/17 15:54 98.5 97 20 111/68 (82) 100 I/O 06/05/17 06/05/17 06/05/17 06/06/17 06/06/17 06/06/17 07:00 15:00 23:00 07:00 15:00 23:00 Intake Total 250 ml 1033 ml 350 ml 250 ml Balance 250 ml 1033 ml 350 ml 250 ml IV Total 250 ml 1033 ml 350 ml 250 ml # Voids 2 Result Diagram: 06/06/17 0840 06/06/17 0840 Objective Remarks GENERAL: This is a well-nourished, well-developed patient, in no apparent distress. CARDIOVASCULAR: Regular rate and rhythm without murmurs, gallops, or rubs. RESPIRATORY: Clear to auscultation. Breath sounds equal bilaterally. No wheezes , rales, or rhonchi. GASTROINTESTINAL: Abdomen soft, non-tender, nondistended. Normal active bowel sounds MUSCULOSKELETAL: Right lower paraspinal muscles tender to palpation. Extremities without clubbing, cyanosis, or edema. NEURO: Alert & Oriented x4 to person, place, time, situation. Moves all ext x4 Procedures None A/P Assessment and Plan 32-year-old female with past medical history significant for IV drug abuse and history of endocarditis presents to the emergency department for evaluation of lower back pain. Bacteremia/Tricuspid valve endocarditis Blood cultures positive for Streptococcus Viridans in 4/4 bottles History of endocarditis treated with extensive IV antibiotics 2 years ago 2D echo confirmed vegetation of the tricuspid valve. ID following, appreciate assistance. Discussed with ID today. -Continue on IV vancomycin, pharmacy to dose -follow up on ID/sensitivities - Follow repeat blood cx Back pain, not controlled MRI of the lumbar spine showed disc bulges at L2-3 and L4-5 with reactive endplate edema at L4-5. Concern for discitis. MRI with contrast shows new mild reactive appearing marrow edema and bony endplates at L45 with mild apparent reactive enhancement Patient c/o severe back pain and muscle spasms -Continue on Percocet, RObaxin -IV Morphine for breakthrough pain -trial Lidoderm patch alternate with K thermia -PT History of IV drug abuse Patient admitted today that the last time she used IV drugs as well as a couple of months ago. Previously stated 6-8 months. currently on Suboxone as outpatient Urine drug screen positive for cannabis and cocaine -Discussed cessation, counseling -monitor opiate use DVT prophylaxis -Lovenox sq Discharge Planning Need prolonged course of IV antibiotics. Desi Jurado MD Jun 06, 2017 15:16
--- NOTE | 2017-06-06 16:23 | HHI.IDPN ---
Subjective Subjective Remarks is a 32 y/o CF with PMHx of IV drug abuse and history of endocarditis presents to the emergency department for evaluation of lower back pain. The patient reports that for the past 3 days she has had a sharp, stabbing pain in her lower back. She reports the pain is worse with movement but is there all the time. She reports she is having difficulty with ambulation secondary to this pain. She denies any shortness of breath or chest pain. No fevers or chills. No nausea/vomiting. No abdominal pain. No lateralizing signs/symptoms except complains of pain radiating from back to Right leg. No tingling numbness. No loss of sensation in perineum. No bowel/bladder incontinence. ID following for discitis and Strep Endocarditis. Overnight events reviewed No fevers no rash No diarrhea Complains of L spine pain right side. On exam no swelling in paraspinal area but + tenderness. MRI changes cw diskitis + BC vir strep 2 D echo positive for veg's on tricuspid valve Antibiotics vanco Lines LIne sites ok Past Medical History reviewed Allergies: Coded Allergies: No Known Allergies (Verified Allergy, Unknown, 06/02/17) Objective . Vital Signs Date Time Temp Pulse Resp B/P (MAP) Pulse Ox O2 Delivery O2 Flow Rate FiO2 06/06/17 12:03 98.5 100 20 122/63 (82) 100 06/06/17 09:19 82 06/06/17 08:57 97.9 77 18 114/71 (85) 100 06/06/17 05:00 97.4 81 18 128/70 (89) 100 06/06/17 01:13 101 06/06/17 01:00 98.6 98 20 120/81 (94) 99 06/05/17 20:22 98.1 98 20 118/50 (72) 100 06/06/17 06/06/17 06/07/17 15:00 23:00 07:00 Intake Total 250 ml Balance 250 ml IV Total 250 ml . Laboratory Tests Test 06/06/17 08:40 White Blood Count 8.0 TH/MM3 Red Blood Count 3.88 MIL/MM3 Hemoglobin 11.0 GM/DL Hematocrit 32.7 % Mean Corpuscular Volume 84.4 FL Mean Corpuscular Hemoglobin 28.4 PG Mean Corpuscular Hemoglobin Concent 33.6 % Red Cell Distribution Width 12.9 % Platelet Count 354 TH/MM3 Mean Platelet Volume 6.2 FL Laboratory Tests Test 06/06/17 08:40 Blood Urea Nitrogen 4 MG/DL Creatinine 0.61 MG/DL Random Glucose 89 MG/DL Calcium Level 8.7 MG/DL Sodium Level 140 MEQ/L Potassium Level 3.6 MEQ/L Chloride Level 107 MEQ/L Carbon Dioxide Level 25.4 MEQ/L Anion Gap 8 MEQ/L Estimat Glomerular Filtration Rate 114 ML/MIN Microbiology Date/Time Source Procedure Growth Status 06/04/17 10:07 Blood Peripheral Aerobic Blood Culture - Preliminary NO GROWTH IN 2 DAYS Resulted 06/04/17 10:07 Blood Peripheral Anaerobic Blood Culture - Preliminary NO GROWTH IN 2 DAYS Resulted 06/04/17 10:07 Blood Peripheral Aerobic Blood Culture - Preliminary NO GROWTH IN 2 DAYS Resulted 06/04/17 10:07 Blood Peripheral Anaerobic Blood Culture - Preliminary NO GROWTH IN 2 DAYS Resulted Imaging Last Impressions Tumor Localization 06/02/17 1016 Signed Impressions: Service Date/Time: May 16:20 - CONCLUSION: Diffuse activity throughout the bones, bladder, spleen and liver as expected. Some activity in the right lower quadrant corresponding with the cecum however there is no evidence of wall thickening or abnormality on the CT portion of the study. Spencer Alvarez MD Lumbar Spine MRI 06/02/17 0000 Signed Impressions: Service Date/Time: May 07:43 - CONCLUSION: 1. No evidence of abscess. 2. New mild reactive appearing marrow edema and bony endplates at L4-5 with mild apparent reactive enhancement. There is slight enhancement in posterior disc margin the disc bulge is present. This could be degenerative there is no definite evidence of discitis. 3. Mild degenerative change involving the lower facet joints. Samson Schaffer MD Physical Exam GENERAL: This is a well-nourished, well-developed patient, in no apparent distress. SKIN: No rashes, ecchymoses or lesions. Cool and dry. HEAD: Atraumatic. Normocephalic. No temporal or scalp tenderness. EYES: Pupils equal round and reactive. Extraocular motions intact. No scleral icterus. No injection or drainage. ENT: Nose without bleeding, purulent drainage or septal hematoma. Throat without erythema, tonsillar hypertrophy or exudate. Uvula midline. Airway patent. NECK: Trachea midline. No JVD or lymphadenopathy. Supple, nontender, no meningeal signs. CARDIOVASCULAR: Regular rate and rhythm without murmurs, gallops, or rubs. RESPIRATORY: Clear to auscultation. Breath sounds equal bilaterally. No wheezes , rales, or rhonchi. GASTROINTESTINAL: Abdomen soft, non-tender, nondistended. No hepato-splenomegaly , or palpable masses. No guarding. MUSCULOSKELETAL: Extremities without clubbing, cyanosis, or edema. No joint tenderness, effusion, or edema noted. No calf tenderness. Negative Homans sign bilaterally. BACK: L spine tender to palpation NEUROLOGICAL: Awake and alert. Cranial nerves II through XII intact. Motor and sensory grossly within normal limits. Five out of 5 muscle strength in all muscle groups. Normal speech. Assessment & Plan Remarks Abnormal MRI suspicious for discitis, L spine Viridans strep bacteremia - - source endocarditis, diskitis IVDA h/o endocarditis Chronic back with new worsening Leucocytosis: improving Recs: Continue CFTX 2 gm IV change to q12hrs follow cultures follow clinically. If back pain worsening will consider repeat MRI to look for epidural abscess. dw patient. Miguelina Chase MD Jun 06, 2017 16:23
[2017-06-06] MEDS: MORPHINE SULFATE 4 MG/ML INJ IV PUSH PRN (21:51)
[2017-06-06] MEDS: REMOVE OLD LIDOCAINE PATCH T-DERMAL SCH (21:53)
[2017-06-06] MEDS: ZOLPIDEM TARTRATE 10 MG TAB PO PRN (23:24)
[2017-06-07] VITALS: BP 116/69; PULSE 81; RESP 18; TEMP 98.4; O2SAT 100
[2017-06-07] MEDS: cefTRIAXone INJ 2,000 MG in SODIUM CHLORIDE 0.9% INJ 100 ML IV SCH ×2 (02:34→16:02)
[2017-06-07] MEDS: oxyCODONE/ACETAMINOPHEN 10 MG/325 MG TAB PO PRN ×4 (02:35→23:52)
[2017-06-07 04:00] VITALS: BP 136/81; PULSE 74; PULSE 85; RESP 18; TEMP 97.7; O2SAT 100
[2017-06-07] MEDS: METHOCARBAMOL INJ 1,000 MG in SODIUM CHLOR 0.9% 250 ML INJ 240 ML IV SCH (06:58)
[2017-06-07] MEDS: MORPHINE SULFATE 4 MG/ML INJ IV PUSH PRN ×4 (06:59→20:34)
[2017-06-07 08:00] VITALS: BP 118/70; PULSE 78; RESP 18; TEMP 97.8; O2SAT 100
[2017-06-07] MEDS: SODIUM CHLORIDE 0.9% FLUSH 10 ML FLUSH IV FLUSH SCH ×2 (09:36→20:34)
[2017-06-07] MEDS: ENOXAPARIN SODIUM 40 MG/0.4 ML SYRINGE SQ SCH (09:36)
[2017-06-07] MEDS: LIDOCAINE HCL 5% PATCH T-DERMAL SCH (09:37)
[2017-06-07] MEDS: DOCUSATE SODIUM 50 MG/SENNA 8.6 MG TAB PO SCH ×2 (09:37→20:33)
[2017-06-07 12:00] VITALS: BP 115/68; PULSE 80; RESP 18; TEMP 98.3; O2SAT 99
--- NOTE | 2017-06-07 14:35 | HHI.PR ---
Subjective Remarks Patient reports increased back pain, she attributes this to increase activity. No fevers or change in leukocytosis. No new complaints. Objective Vital Signs Date Time Temp Pulse Resp B/P (MAP) Pulse Ox O2 Delivery O2 Flow Rate FiO2 06/07/17 12:35 18 06/07/17 10:43 18 06/07/17 08:00 97.8 78 18 118/70 (86) 100 06/07/17 04:00 85 06/07/17 04:00 97.7 74 18 136/81 (99) 100 06/07/17 00:00 98.4 81 18 116/69 (85) 100 06/07/17 00:00 81 06/07/17 00:00 81 06/06/17 20:00 97.0 88 18 133/0 (44) 100 06/06/17 17:56 85 06/06/17 16:00 98.6 88 18 120/65 (83) 100 I/O 06/06/17 06/06/17 06/06/17 06/07/17 06/07/17 06/07/17 07:00 15:00 23:00 07:00 15:00 23:00 Intake Total 350 ml 250 ml 350 ml Balance 350 ml 250 ml 350 ml IV Total 350 ml 250 ml 350 ml # Voids 2 Result Diagram: 06/06/17 0840 06/06/17 0840 Objective Remarks GENERAL: NAD, A&Ox3 HEAD: Normocephalic. NECK: Supple, trachea midline. No lymphadenopathy. EYES: No scleral icterus. No injection or drainage. CARDIOVASCULAR: Regular rate and rhythm without murmurs, gallops, or rubs. RESPIRATORY: Breath sounds equal bilaterally. No accessory muscle use. GASTROINTESTINAL: Abdomen soft, non-tender, nondistended. MUSCULOSKELETAL: No cyanosis, or edema. SKIN: Warm and dry. NEURO: No focal neurological deficitis. A/P Problem List: (1) Bacteremia ICD Code: R78.81 - Bacteremia (2) Discitis ICD Code: M46.40 - Discitis, unspecified, site unspecified (3) Endocarditis ICD Code: I38 - Endocarditis, valve unspecified Status: Acute (4) IV drug abuse ICD Code: F19.10 - Other psychoactive substance abuse, uncomplicated Status: Chronic Assessment and Plan 32-year-old female admitted secondary to infective endocarditis with discitis and bacteremia, related to IV drug abuse. Discitis Infective endocarditis Bacteremia Continue to monitor blood cultures Continue IV vancomycin Infectious disease following Blood cultures positive for Streptococcus on ID/sensitivities For back pain, continue Percocet and Robaxin Continue pain treatments as needed Physical therapy History of IV drug abuse the last time she used IV drugs as well as a couple of months ago. currently on Suboxone as outpatient She has a history of complying with outpatient treatments and sobriety DVT prophylaxis Lovenox Discharge Planning Continue IV antibiotics and plan for outpatient IV antibiotic arrangements Blake Alcala MD June 07, 2017 14:35
[2017-06-07 16:00] VITALS: BP 121/63; PULSE 87; RESP 18; TEMP 98.1; O2SAT 100
--- NOTE | 2017-06-07 16:01 | HHI.IDPN ---
Subjective Subjective Remarks is a 32 y/o CF with PMHx of IV drug abuse and history of endocarditis presents to the emergency department for evaluation of lower back pain. The patient reports that for the past 3 days she has had a sharp, stabbing pain in her lower back. She reports the pain is worse with movement but is there all the time. She reports she is having difficulty with ambulation secondary to this pain. She denies any shortness of breath or chest pain. No fevers or chills. No nausea/vomiting. No abdominal pain. No lateralizing signs/symptoms except complains of pain radiating from back to Right leg. No tingling numbness. No loss of sensation in perineum. No bowel/bladder incontinence. ID following for discitis and Strep Endocarditis. Overnight events reviewed No fevers no rash No diarrhea Complains of L spine and now pain radiating down left leg. Walked to the sink with a walker but was in discomfort. MRI changes cw diskitis + BC vir strep 2 D echo positive for veg's on tricuspid valve Antibiotics Ceftriaxone IV Lines LIne sites ok Past Medical History reviewed Allergies: Coded Allergies: No Known Allergies (Verified Allergy, Unknown, 06/02/17) Objective . Vital Signs Date Time Temp Pulse Resp B/P (MAP) Pulse Ox O2 Delivery O2 Flow Rate FiO2 06/07/17 12:35 18 06/07/17 12:00 98.3 80 18 115/68 (84) 99 06/07/17 10:43 18 06/07/17 08:00 97.8 78 18 118/70 (86) 100 06/07/17 04:00 85 06/07/17 04:00 97.7 74 18 136/81 (99) 100 06/07/17 00:00 98.4 81 18 116/69 (85) 100 06/07/17 00:00 81 06/07/17 00:00 81 06/06/17 20:00 97.0 88 18 133/0 (44) 100 06/06/17 17:56 85 06/06/17 16:00 98.6 88 18 120/65 (83) 100 06/07/17 06/07/17 06/08/17 15:00 23:00 07:00 # Voids 2 . Laboratory Tests Test 06/06/17 08:40 White Blood Count 8.0 TH/MM3 Red Blood Count 3.88 MIL/MM3 Hemoglobin 11.0 GM/DL Hematocrit 32.7 % Mean Corpuscular Volume 84.4 FL Mean Corpuscular Hemoglobin 28.4 PG Mean Corpuscular Hemoglobin Concent 33.6 % Red Cell Distribution Width 12.9 % Platelet Count 354 TH/MM3 Mean Platelet Volume 6.2 FL Laboratory Tests Test 06/06/17 08:40 Blood Urea Nitrogen 4 MG/DL Creatinine 0.61 MG/DL Random Glucose 89 MG/DL Calcium Level 8.7 MG/DL Sodium Level 140 MEQ/L Potassium Level 3.6 MEQ/L Chloride Level 107 MEQ/L Carbon Dioxide Level 25.4 MEQ/L Anion Gap 8 MEQ/L Estimat Glomerular Filtration Rate 114 ML/MIN Imaging Last Impressions Tumor Localization 06/02/17 1016 Signed Impressions: Service Date/Time: May 16:20 - CONCLUSION: Diffuse activity throughout the bones, bladder, spleen and liver as expected. Some activity in the right lower quadrant corresponding with the cecum however there is no evidence of wall thickening or abnormality on the CT portion of the study. Spencer Alvarez MD Lumbar Spine MRI 06/02/17 0000 Signed Impressions: Service Date/Time: May 07:43 - CONCLUSION: 1. No evidence of abscess. 2. New mild reactive appearing marrow edema and bony endplates at L4-5 with mild apparent reactive enhancement. There is slight enhancement in posterior disc margin the disc bulge is present. This could be degenerative there is no definite evidence of discitis. 3. Mild degenerative change involving the lower facet joints. Samson Schaffer MD Physical Exam GENERAL: This is a well-nourished, well-developed patient, in no apparent distress. SKIN: No rashes, ecchymoses or lesions. Cool and dry. HEAD: Atraumatic. Normocephalic. No temporal or scalp tenderness. EYES: Pupils equal round and reactive. Extraocular motions intact. No scleral icterus. No injection or drainage. ENT: Nose without bleeding, purulent drainage or septal hematoma. Throat without erythema, tonsillar hypertrophy or exudate. Uvula midline. Airway patent. NECK: Trachea midline. No JVD or lymphadenopathy. Supple, nontender, no meningeal signs. CARDIOVASCULAR: Regular rate and rhythm without murmurs, gallops, or rubs. RESPIRATORY: Clear to auscultation. Breath sounds equal bilaterally. No wheezes , rales, or rhonchi. GASTROINTESTINAL: Abdomen soft, non-tender, nondistended. No hepato-splenomegaly , or palpable masses. No guarding. MUSCULOSKELETAL: Extremities without clubbing, cyanosis, or edema. No joint tenderness, effusion, or edema noted. No calf tenderness. Negative Homans sign bilaterally. BACK: L spine tender to palpation NEUROLOGICAL: Awake and alert. Cranial nerves II through XII intact. Motor and sensory grossly within normal limits. Five out of 5 muscle strength in all muscle groups. Normal speech. Assessment & Plan Remarks Abnormal MRI suspicious for discitis, L spine Viridans strep bacteremia - - source endocarditis, diskitis IVDA h/o endocarditis Chronic back with new worsening Leucocytosis: improving Recs: Continue CFTX 2 gm IV change to q12hrs follow cultures follow clinically. Will consider repeat MRI to look for epidural abscess if back pain persists. Today patient says she may not be able to lie down as she possibly strained her back in bathroom. Needs CT C/A/P with contrast as well at some point to look for evidence of disseminated infection. dw patient. Miguelina Chase MD June 07, 2017 16:01
[2017-06-07 20:00] VITALS: BP 115/57; PULSE 102; PULSE 110; RESP 18; TEMP 98; O2SAT 100
[2017-06-07] MEDS: REMOVE OLD LIDOCAINE PATCH T-DERMAL SCH (20:35)
[2017-06-07] MEDS: ZOLPIDEM TARTRATE 10 MG TAB PO PRN (23:52)
[2017-06-08] VITALS (8 sets, daily range): BP systolic 111–124; BP diastolic 58–70; PULSE 74–89; RESP 18–20; TEMP 97.3–98.3; O2SAT 99–100
[2017-06-08] MEDS: cefTRIAXone INJ 2,000 MG in SODIUM CHLORIDE 0.9% INJ 100 ML IV SCH ×2 (02:25→14:07)
[2017-06-08] MEDS: MORPHINE SULFATE 4 MG/ML INJ IV PUSH PRN ×5 (04:18→21:00)
[2017-06-08] MEDS: oxyCODONE/ACETAMINOPHEN 10 MG/325 MG TAB PO PRN ×3 (06:41→18:37)
[2017-06-08] MEDS: LIDOCAINE HCL 5% PATCH T-DERMAL SCH (08:36)
[2017-06-08] MEDS: DOCUSATE SODIUM 50 MG/SENNA 8.6 MG TAB PO SCH ×2 (08:36→20:59)
[2017-06-08] MEDS: ENOXAPARIN SODIUM 40 MG/0.4 ML SYRINGE SQ SCH (08:36)
[2017-06-08] MEDS: SODIUM CHLORIDE 0.9% FLUSH 10 ML FLUSH IV FLUSH SCH ×2 (08:44→21:01)
[2017-06-08] MEDS: CYCLOBENZAPRINE HCL 10 MG TAB PO PRN ×2 (12:42→20:59)
--- NOTE | 2017-06-08 15:26 | HHI.PR ---
Subjective Remarks Muscle spasms today, back pain has slightly improved. No fevers overnight. Objective Vital Signs Date Time Temp Pulse Resp B/P (MAP) Pulse Ox O2 Delivery O2 Flow Rate FiO2 06/08/17 13:42 18 06/08/17 12:00 98.0 80 20 113/70 (84) 100 06/08/17 08:41 19 06/08/17 08:23 97.6 81 20 124/69 (87) 100 06/08/17 04:00 97.7 74 18 111/62 (78) 100 06/08/17 00:00 97.5 80 18 119/66 (83) 99 06/08/17 00:00 89 06/07/17 20:00 98.0 102 18 115/57 (76) 100 06/07/17 20:00 110 06/07/17 16:00 98.1 87 18 121/63 (82) 100 I/O 06/07/17 06/07/17 06/07/17 06/08/17 06/08/17 06/08/17 07:00 15:00 23:00 07:00 15:00 23:00 Intake Total 350 ml 100 ml Balance 350 ml 100 ml IV Total 350 ml 100 ml # Voids 2 3 Result Diagram: 06/06/17 0840 06/06/17 0840 Objective Remarks GENERAL: NAD, A&Ox3 HEAD: Normocephalic. NECK: Supple, trachea midline. No lymphadenopathy. EYES: No scleral icterus. No injection or drainage. CARDIOVASCULAR: Regular rate and rhythm without murmurs, gallops, or rubs. RESPIRATORY: Breath sounds equal bilaterally. No accessory muscle use. GASTROINTESTINAL: Abdomen soft, non-tender, nondistended. MUSCULOSKELETAL: No cyanosis, or edema. SKIN: Warm and dry. NEURO: No focal neurological deficitis. A/P Problem List: (1) Bacteremia ICD Code: R78.81 - Bacteremia (2) Discitis ICD Code: M46.40 - Discitis, unspecified, site unspecified (3) Endocarditis ICD Code: I38 - Endocarditis, valve unspecified Status: Acute (4) IV drug abuse ICD Code: F19.10 - Other psychoactive substance abuse, uncomplicated Status: Chronic Assessment and Plan 32-year-old female admitted secondary to infective endocarditis with discitis and bacteremia, related to IV drug abuse. Check labs in the morning possible need for repeat MRI of back pain persists. Flexeril provided for muscle spasms. Discitis Infective endocarditis Bacteremia Continue to monitor blood cultures Continue IV vancomycin Infectious disease following Blood cultures positive for Streptococcus on ID/sensitivities For back pain, continue Percocet and Robaxin Continue pain treatments as needed Physical therapy History of IV drug abuse the last time she used IV drugs as well as a couple of months ago. currently on Suboxone as outpatient She has a history of complying with outpatient treatments and sobriety DVT prophylaxis Lovenox Discharge Planning Continue IV antibiotics and plan for outpatient IV antibiotic arrangements Blake Alcala MD June 08, 2017 15:26
[2017-06-08] MEDS: REMOVE OLD LIDOCAINE PATCH T-DERMAL SCH (21:00)
[2017-06-09] VITALS (9 sets, daily range): BP systolic 108–123; BP diastolic 56–64; PULSE 80–105; RESP 18–20; TEMP 97.2–98.2; O2SAT 100
[2017-06-09] MEDS: ZOLPIDEM TARTRATE 10 MG TAB PO PRN (00:32)
[2017-06-09] MEDS: cefTRIAXone INJ 2,000 MG in SODIUM CHLORIDE 0.9% INJ 100 ML IV SCH ×2 (02:28→14:22)
[2017-06-09] MEDS: MORPHINE SULFATE 4 MG/ML INJ IV PUSH PRN ×5 (03:37→21:46)
[2017-06-09] MEDS: oxyCODONE/ACETAMINOPHEN 10 MG/325 MG TAB PO PRN ×3 (06:26→18:44)
[2017-06-09] MEDS: DOCUSATE SODIUM 50 MG/SENNA 8.6 MG TAB PO SCH ×2 (08:45→21:48)
[2017-06-09] MEDS: LIDOCAINE HCL 5% PATCH T-DERMAL SCH (08:46)
[2017-06-09] MEDS: ENOXAPARIN SODIUM 40 MG/0.4 ML SYRINGE SQ SCH (08:46)
[2017-06-09] MEDS: SODIUM CHLORIDE 0.9% FLUSH 10 ML FLUSH IV FLUSH SCH ×2 (08:46→21:47)
[2017-06-09] MEDS: CYCLOBENZAPRINE HCL 10 MG TAB PO PRN ×2 (10:48→18:44)
--- NOTE | 2017-06-09 12:05 | HHI.PR ---
Subjective Remarks Back pain remains present. Repeat MRI ordered for today. Patient has no other new complaints. Objective Vital Signs Date Time Temp Pulse Resp B/P (MAP) Pulse Ox O2 Delivery O2 Flow Rate FiO2 06/09/17 11:36 98.2 103 20 118/62 (80) 100 06/09/17 08:13 98.2 80 20 116/56 (76) 100 06/09/17 08:00 82 06/09/17 03:42 97.3 88 20 115/56 (75) 100 06/09/17 00:28 97.4 82 18 113/59 (77) 100 06/08/17 20:53 97.3 88 18 111/58 (75) 100 06/08/17 16:17 98.3 77 20 115/63 (80) 99 06/08/17 16:00 86 06/08/17 16:00 85 06/08/17 13:42 18 I/O 06/08/17 06/08/17 06/08/17 06/09/17 06/09/17 06/09/17 07:00 15:00 23:00 07:00 15:00 23:00 Intake Total 100 ml Balance 100 ml IV Total 100 ml # Voids 3 Result Diagram: 06/06/17 0840 06/06/17 0840 Objective Remarks GENERAL: NAD, A&Ox3 HEAD: Normocephalic. NECK: Supple, trachea midline. No lymphadenopathy. EYES: No scleral icterus. No injection or drainage. CARDIOVASCULAR: Regular rate and rhythm without murmurs, gallops, or rubs. RESPIRATORY: Breath sounds equal bilaterally. No accessory muscle use. GASTROINTESTINAL: Abdomen soft, non-tender, nondistended. MUSCULOSKELETAL: No cyanosis, or edema. SKIN: Warm and dry. NEURO: No focal neurological deficitis. A/P Problem List: (1) Bacteremia ICD Code: R78.81 - Bacteremia (2) Discitis ICD Code: M46.40 - Discitis, unspecified, site unspecified (3) Endocarditis ICD Code: I38 - Endocarditis, valve unspecified Status: Acute (4) IV drug abuse ICD Code: F19.10 - Other psychoactive substance abuse, uncomplicated Status: Chronic Assessment and Plan 32-year-old female admitted secondary to infective endocarditis with discitis and bacteremia, related to IV drug abuse. Flexeril has improved her muscle spasms. She still has back pain. MRI ordered for today to evaluate development of abscess. Discitis Infective endocarditis Bacteremia Continue to monitor blood cultures Continue IV vancomycin Infectious disease following Blood cultures positive for Streptococcus on ID/sensitivities For back pain, continue Percocet and Robaxin Continue pain treatments as needed Physical therapy History of IV drug abuse the last time she used IV drugs as well as a couple of months ago. currently on Suboxone as outpatient She has a history of complying with outpatient treatments and sobriety DVT prophylaxis Lovenox Discharge Planning Continue IV antibiotics and plan for outpatient IV antibiotic arrangements Blake Alcala MD June 09, 2017 12:05
[2017-06-09 12:36] LABS: AUTOMATED NEUTROPHIL # 7.1 TH/MM3 (1.8-7.7); BASOPHIL # 0.1 TH/MM3 (0-0.2); BASOPHIL % 0.6 % (0.0-2.0); EOSINOPHIL # 0.3 TH/MM3 (0-0.4); EOSINOPHIL % 3.3 % (0.0-4.0); HEMOGLOBIN 13.3 GM/DL (11.6-15.3); LYMPH % 19.2 % (9.0-44.0); LYMPHOCYTE # 1.9 TH/MM3 (1.0-4.8); MEAN CELL VOLUME 84.9 FL (80.0-100.0); MEAN CORPUSCULAR HGB CONC 34.2 % (32.0-36.0); MEAN PLATELET VOLUME 6.3 FL (7.0-11.0); MONO % 4.9 % (0.0-8.0); MONOCYTE # 0.5 TH/MM3 (0-0.9); PLATELET COUNT 398 TH/MM3 (150-450); RED CELL DISTRIBUTION WIDTH 13.3 % (11.6-17.2); WHITE BLOOD COUNT 9.9 TH/MM3 (4.0-11.0)
[2017-06-09 13:16] LABS: ALBUMIN 3.9 GM/DL (3.4-5.0); ALKALINE PHOSPHATASE 79 U/L (45-117); ALT (GPT) 13 U/L (10-53); AST (GOT) 17 U/L (15-37); BICARBONATE 27.8 MEQ/L (21.0-32.0); BLOOD UREA NITROGEN 7 MG/DL (7-18); CALCIUM 9.9 MG/DL (8.5-10.1); CHLORIDE 99 MEQ/L (98-107); CREATININE 0.68 MG/DL (0.50-1.00); GLOMERULAR FILTRATION RATE 101 ML/MIN (>89); GLUCOSE,RANDOM 60 MG/DL (74-106); SODIUM (NA) 139 MEQ/L (136-145); TOTAL BILIRUBIN ADULT 0.3 MG/DL (0.2-1.0); TOTAL PROTEIN 9.6 GM/DL (6.4-8.2)
--- NOTE | 2017-06-09 14:09 | HHI.IDPN ---
Subjective Subjective Remarks is a 32 y/o CF with PMHx of IV drug abuse and history of endocarditis presents to the emergency department for evaluation of lower back pain. The patient reports that for the past 3 days she has had a sharp, stabbing pain in her lower back. She reports the pain is worse with movement but is there all the time. She reports she is having difficulty with ambulation secondary to this pain. She denies any shortness of breath or chest pain. No fevers or chills. No nausea/vomiting. No abdominal pain. No lateralizing signs/symptoms except complains of pain radiating from back to Right leg. No tingling numbness. No loss of sensation in perineum. No bowel/bladder incontinence. ID following for discitis and Strep Endocarditis. Overnight events reviewed No fevers no rash No diarrhea Complains of L spine and now pain radiating down left leg. Walked to the sink with a walker but was in discomfort. MRI changes cw diskitis + BC vir strep 2 D echo positive for veg's on tricuspid valve Antibiotics Ceftriaxone IV Lines LIne sites ok Past Medical History reviewed Allergies: Coded Allergies: No Known Allergies (Verified Allergy, Unknown, 06/02/17) Objective . Vital Signs Date Time Temp Pulse Resp B/P (MAP) Pulse Ox O2 Delivery O2 Flow Rate FiO2 06/09/17 11:36 98.2 103 20 118/62 (80) 100 06/09/17 08:13 98.2 80 20 116/56 (76) 100 06/09/17 08:00 82 06/09/17 03:42 97.3 88 20 115/56 (75) 100 06/09/17 00:28 97.4 82 18 113/59 (77) 100 06/08/17 20:53 97.3 88 18 111/58 (75) 100 06/08/17 16:17 98.3 77 20 115/63 (80) 99 06/08/17 16:00 86 06/08/17 16:00 85 . Laboratory Tests Test 06/09/17 12:06 White Blood Count 9.9 TH/MM3 Red Blood Count 4.60 MIL/MM3 Hemoglobin 13.3 GM/DL Hematocrit 39.0 % Mean Corpuscular Volume 84.9 FL Mean Corpuscular Hemoglobin 29.0 PG Mean Corpuscular Hemoglobin Concent 34.2 % Red Cell Distribution Width 13.3 % Platelet Count 398 TH/MM3 Mean Platelet Volume 6.3 FL Neutrophils (%) (Auto) 72.0 % Lymphocytes (%) (Auto) 19.2 % Monocytes (%) (Auto) 4.9 % Eosinophils (%) (Auto) 3.3 % Basophils (%) (Auto) 0.6 % Neutrophils # (Auto) 7.1 TH/MM3 Lymphocytes # (Auto) 1.9 TH/MM3 Monocytes # (Auto) 0.5 TH/MM3 Eosinophils # (Auto) 0.3 TH/MM3 Basophils # (Auto) 0.1 TH/MM3 CBC Comment DIFF FINAL Differential Comment Laboratory Tests Test 06/09/17 12:06 Blood Urea Nitrogen 7 MG/DL Creatinine 0.68 MG/DL Random Glucose 60 MG/DL Total Protein 9.6 GM/DL Albumin 3.9 GM/DL Calcium Level 9.9 MG/DL Alkaline Phosphatase 79 U/L Aspartate Amino Transf (AST/SGOT) 17 U/L Alanine Aminotransferase (ALT/SGPT) 13 U/L Total Bilirubin 0.3 MG/DL Sodium Level 139 MEQ/L Potassium Level 3.4 MEQ/L Chloride Level 99 MEQ/L Carbon Dioxide Level 27.8 MEQ/L Anion Gap 12 MEQ/L Estimat Glomerular Filtration Rate 101 ML/MIN Imaging Last Impressions Tumor Localization 06/02/17 1016 Signed Impressions: Service Date/Time: May 16:20 - CONCLUSION: Diffuse activity throughout the bones, bladder, spleen and liver as expected. Some activity in the right lower quadrant corresponding with the cecum however there is no evidence of wall thickening or abnormality on the CT portion of the study. Spencer Alvarez MD Lumbar Spine MRI 06/02/17 0000 Signed Impressions: Service Date/Time: May 07:43 - CONCLUSION: 1. No evidence of abscess. 2. New mild reactive appearing marrow edema and bony endplates at L4-5 with mild apparent reactive enhancement. There is slight enhancement in posterior disc margin the disc bulge is present. This could be degenerative there is no definite evidence of discitis. 3. Mild degenerative change involving the lower facet joints. Samson Schaffer MD Physical Exam GENERAL: This is a well-nourished, well-developed patient, in no apparent distress. SKIN: No rashes, ecchymoses or lesions. Cool and dry. HEAD: Atraumatic. Normocephalic. No temporal or scalp tenderness. EYES: Pupils equal round and reactive. Extraocular motions intact. No scleral icterus. No injection or drainage. ENT: Nose without bleeding, purulent drainage or septal hematoma. Throat without erythema, tonsillar hypertrophy or exudate. Uvula midline. Airway patent. NECK: Trachea midline. No JVD or lymphadenopathy. Supple, nontender, no meningeal signs. CARDIOVASCULAR: Regular rate and rhythm without murmurs, gallops, or rubs. RESPIRATORY: Clear to auscultation. Breath sounds equal bilaterally. No wheezes , rales, or rhonchi. GASTROINTESTINAL: Abdomen soft, non-tender, nondistended. No hepato-splenomegaly , or palpable masses. No guarding. MUSCULOSKELETAL: Extremities without clubbing, cyanosis, or edema. No joint tenderness, effusion, or edema noted. No calf tenderness. Negative Homans sign bilaterally. BACK: L spine tender to palpation NEUROLOGICAL: Awake and alert. Cranial nerves II through XII intact. Motor and sensory grossly within normal limits. Five out of 5 muscle strength in all muscle groups. Normal speech. Assessment & Plan Remarks Abnormal MRI suspicious for discitis, L spine Viridans strep bacteremia - - source endocarditis, diskitis IVDA h/o endocarditis Chronic back with new worsening Leucocytosis: improving Recs: Continue CFTX 2 gm IV change to q12hrs follow cultures follow clinically. Repeat MRI to look for epidural abscess as back pain persists. Needs CT C/A/P with contrast as well at some point to look for evidence of disseminated infection. dw patient. Miguelina Chase MD June 09, 2017 14:09
[2017-06-09] MEDS ORDERED: GADODIAMIDE PF 287 MG/ML 5 ML VIAL (for RAD MRI) IVCONTRAST ONE (18:18)
--- NOTE | 2017-06-09 19:02 | RADRPT ---
EXAM DATE/TIME: 06/09/2017 17:58 [facility] COMPARISON: No previous studies available for comparison. INDICATIONS : Pain. CONTRAST: 12 cc Omniscan (gadodiamide) IV MEDICAL HISTORY : IV drug abuse. SURGICAL HISTORY : None. ENCOUNTER: Subsequent ACUITY: 1 week PAIN SCORE: 9/10 LOCATION: Lower back. TECHNIQUE: Multiplanar multisequence MRI of the lumbar spine was performed with and without contrast. FINDINGS: Comparison is June 02. There is an increase in edema and marrow enhancement at L4-5 disc interspace predominantly on the right side. There is also some enhancement in the anterior epidural soft tissues and there is a small disc protrusion. The findings are most characteristic of a mild or early discit is. No epidural abscess at this time. Stable mild compression deformity of L3. No other discrete disc protrusions. Conus medullaris intact. Stable alignment. CONCLUSION: 1. Slight increase in marrow edema and enhancement at L4-5, especially on the right side most charact eristic of an early or mild discitis with some inflammatory change in the anterior epidural space. No discrete epidural abscess at this time. There is mild encroachment on the lateral recesses. Abnormal enhancement extends into the neural foramina, worse on the right. Oren Alexander MD on June 09, 2017 at 18:55 Board Certified Radiologist. This report was verified electronically.
[2017-06-09] MEDS: REMOVE OLD LIDOCAINE PATCH T-DERMAL SCH (21:47)
[2017-06-10] VITALS (7 sets, daily range): BP systolic 108–131; BP diastolic 58–72; PULSE 82–101; RESP 16–20; TEMP 97.7–98.4; O2SAT 98–100
[2017-06-10] MEDS: oxyCODONE/ACETAMINOPHEN 10 MG/325 MG TAB PO PRN ×4 (00:48→21:22)
[2017-06-10] MEDS: ZOLPIDEM TARTRATE 10 MG TAB PO PRN (00:48)
[2017-06-10] MEDS: cefTRIAXone INJ 2,000 MG in SODIUM CHLORIDE 0.9% INJ 100 ML IV SCH ×2 (01:18→13:34)
[2017-06-10] MEDS: MORPHINE SULFATE 4 MG/ML INJ IV PUSH PRN ×3 (05:30→19:06)
[2017-06-10] MEDS: SODIUM CHLORIDE 0.9% FLUSH 10 ML FLUSH IV FLUSH PRN (05:31)
[2017-06-10] MEDS: CYCLOBENZAPRINE HCL 10 MG TAB PO PRN ×2 (05:31→18:03)
[2017-06-10] MEDS: DOCUSATE SODIUM 50 MG/SENNA 8.6 MG TAB PO SCH ×2 (09:34→21:21)
[2017-06-10] MEDS: ENOXAPARIN SODIUM 40 MG/0.4 ML SYRINGE SQ SCH (09:34)
[2017-06-10] MEDS: LIDOCAINE HCL 5% PATCH T-DERMAL SCH (09:34)
[2017-06-10] MEDS: SODIUM CHLORIDE 0.9% FLUSH 10 ML FLUSH IV FLUSH SCH ×2 (09:35→21:23)
[2017-06-10] MEDS ORDERED: methylPREDNISolone SOD SUCC 40 MG/1 ML VIAL IV PUSH ONE (12:00)
--- NOTE | 2017-06-10 17:34 | HHI.PR ---
Subjective Remarks MRI shows that she has increased swelling of her discitis including local nerve sheath. This explains patient's symptoms. She still complains of back pain today. Objective Vital Signs Date Time Temp Pulse Resp B/P (MAP) Pulse Ox O2 Delivery O2 Flow Rate FiO2 06/10/17 16:00 98.4 100 18 131/72 (91) 100 06/10/17 12:00 98.2 101 20 129/64 (85) 100 06/10/17 08:00 97.9 83 16 109/58 (75) 100 06/10/17 04:00 98.0 82 18 113/68 (83) 99 06/10/17 00:00 97.7 87 18 115/60 (78) 100 06/10/17 00:00 99 06/09/17 20:00 97.2 105 18 123/57 (79) 100 I/O 06/09/17 06/09/17 06/09/17 06/10/17 06/10/17 06/10/17 07:00 15:00 23:00 07:00 15:00 23:00 Intake Total 720 ml 300 ml Balance 720 ml 300 ml Intake Oral 720 ml 200 ml IV Total 100 ml # Voids 8 2 # Bowel Movements 1 0 Result Diagram: 06/09/17 1206 06/09/17 1206 Objective Remarks GENERAL: NAD, A&Ox3 HEAD: Normocephalic. NECK: Supple, trachea midline. No lymphadenopathy. EYES: No scleral icterus. No injection or drainage. CARDIOVASCULAR: Regular rate and rhythm without murmurs, gallops, or rubs. RESPIRATORY: Breath sounds equal bilaterally. No accessory muscle use. GASTROINTESTINAL: Abdomen soft, non-tender, nondistended. MUSCULOSKELETAL: No cyanosis, or edema. SKIN: Warm and dry. NEURO: No focal neurological deficitis. A/P Problem List: (1) Bacteremia ICD Code: R78.81 - Bacteremia (2) Discitis ICD Code: M46.40 - Discitis, unspecified, site unspecified (3) Endocarditis ICD Code: I38 - Endocarditis, valve unspecified Status: Acute (4) IV drug abuse ICD Code: F19.10 - Other psychoactive substance abuse, uncomplicated Status: Chronic Assessment and Plan 32-year-old female admitted secondary to infective endocarditis with discitis and bacteremia, related to IV drug abuse. I do not feel that the increase inflammation is related to spread of infection. It is likely a reactive inflammation to current infection. Steroids will be used if suppressor inflammation reaction. Discitis Infective endocarditis Bacteremia Continue to monitor blood cultures Continue IV vancomycin Infectious disease following Blood cultures positive for Streptococcus on ID/sensitivities For back pain, continue Percocet and Robaxin Continue pain treatments as needed Physical therapy History of IV drug abuse the last time she used IV drugs as well as a couple of months ago. currently on Suboxone as outpatient She has a history of complying with outpatient treatments and sobriety DVT prophylaxis Lovenox Discharge Planning Continue IV antibiotics and plan for outpatient IV antibiotic arrangements Blake Alcala MD June 10, 2017 17:34
[2017-06-10] MEDS: methylPREDNISolone SOD SUCC 40 MG/1 ML VIAL IV PUSH SCH (21:21)
[2017-06-10] MEDS: REMOVE OLD LIDOCAINE PATCH T-DERMAL SCH (21:23)
[2017-06-10] MEDS: ACETAMINOPHEN 325 MG TAB PO PRN (22:26)
[2017-06-11] VITALS (8 sets, daily range): BP systolic 113–127; BP diastolic 55–64; PULSE 76–104; RESP 17–18; TEMP 97.6–98.7; O2SAT 97–100
[2017-06-11] MEDS: cefTRIAXone INJ 2,000 MG in SODIUM CHLORIDE 0.9% INJ 100 ML IV SCH ×2 (01:35→14:14)
[2017-06-11] MEDS: MORPHINE SULFATE 4 MG/ML INJ IV PUSH PRN ×4 (01:35→20:08)
[2017-06-11] MEDS: CYCLOBENZAPRINE HCL 10 MG TAB PO PRN ×3 (04:36→23:21)
[2017-06-11] MEDS: oxyCODONE/ACETAMINOPHEN 10 MG/325 MG TAB PO PRN ×4 (04:36→23:21)
[2017-06-11] MEDS: LIDOCAINE HCL 5% PATCH T-DERMAL SCH (08:33)
[2017-06-11] MEDS: DOCUSATE SODIUM 50 MG/SENNA 8.6 MG TAB PO SCH ×2 (08:33→20:16)
[2017-06-11] MEDS: ENOXAPARIN SODIUM 40 MG/0.4 ML SYRINGE SQ SCH (08:33)
[2017-06-11] MEDS: SODIUM CHLORIDE 0.9% FLUSH 10 ML FLUSH IV FLUSH SCH ×2 (08:35→20:16)
[2017-06-11] MEDS: methylPREDNISolone SOD SUCC 40 MG/1 ML VIAL IV PUSH SCH ×2 (08:35→20:15)
[2017-06-11] MEDS: ACETAMINOPHEN 325 MG TAB PO PRN (09:09)
--- NOTE | 2017-06-11 11:18 | HHI.PR ---
Subjective Remarks Steroids have benefited her back pain and spasms. No new complaints. No fevers. Objective Vital Signs Date Time Temp Pulse Resp B/P (MAP) Pulse Ox O2 Delivery O2 Flow Rate FiO2 06/11/17 08:00 98.7 76 18 127/61 (83) 100 06/11/17 05:00 97.7 92 18 121/61 (81) 100 06/11/17 00:00 83 06/10/17 23:00 97.8 95 18 119/58 (78) 100 06/10/17 20:00 98.3 101 18 108/63 (78) 98 06/10/17 20:00 96 06/10/17 16:00 98.4 100 18 131/72 (91) 100 06/10/17 12:00 98.2 101 20 129/64 (85) 100 I/O 06/10/17 06/10/17 06/10/17 06/11/17 06/11/17 06/11/17 07:00 15:00 23:00 07:00 15:00 23:00 Intake Total 300 ml Balance 300 ml Intake Oral 200 ml IV Total 100 ml # Voids 2 2 4 # Bowel Movements 0 Result Diagram: 06/09/17 1206 06/09/17 1206 Objective Remarks GENERAL: NAD, A&Ox3 HEAD: Normocephalic. NECK: Supple, trachea midline. No lymphadenopathy. EYES: No scleral icterus. No injection or drainage. CARDIOVASCULAR: Regular rate and rhythm without murmurs, gallops, or rubs. RESPIRATORY: Breath sounds equal bilaterally. No accessory muscle use. GASTROINTESTINAL: Abdomen soft, non-tender, nondistended. MUSCULOSKELETAL: No cyanosis, or edema. SKIN: Warm and dry. NEURO: No focal neurological deficitis. A/P Problem List: (1) Bacteremia ICD Code: R78.81 - Bacteremia (2) Discitis ICD Code: M46.40 - Discitis, unspecified, site unspecified (3) Endocarditis ICD Code: I38 - Endocarditis, valve unspecified Status: Acute (4) IV drug abuse ICD Code: F19.10 - Other psychoactive substance abuse, uncomplicated Status: Chronic Assessment and Plan 32-year-old female admitted secondary to infective endocarditis with discitis and bacteremia, related to IV drug abuse. Continue steroids for about 4 days. Back pain improving on steroids. Follow clinically. Discitis Infective endocarditis Bacteremia Continue to monitor blood cultures Continue IV vancomycin Infectious disease following Blood cultures positive for Streptococcus on ID/sensitivities For back pain, continue Percocet and Robaxin Continue pain treatments as needed Physical therapy History of IV drug abuse the last time she used IV drugs as well as a couple of months ago. currently on Suboxone as outpatient She has a history of complying with outpatient treatments and sobriety DVT prophylaxis Lovenox Discharge Planning Continue IV antibiotics and plan for outpatient IV antibiotic arrangements Blake Alcala MD June 11, 2017 11:18
--- NOTE | 2017-06-11 17:41 | HHI.IDPN ---
Subjective Subjective Remarks Patient seen and examined with Dr. Chase is a 32 y/o CF with PMHx of IV drug abuse and history of endocarditis presents to the emergency department for evaluation of lower back pain. The patient reports that for the past 3 days she has had a sharp, stabbing pain in her lower back. She reports the pain is worse with movement but is there all the time. She reports she is having difficulty with ambulation secondary to this pain. She denies any shortness of breath or chest pain. No fevers or chills. No nausea/vomiting. No abdominal pain. No lateralizing signs/symptoms except complains of pain radiating from back to Right leg. No tingling numbness. No loss of sensation in perineum. No bowel/bladder incontinence. ID following for discitis and Strep Endocarditis. Notes reviewed. Patient reports significant improvement in back spasms since starting on IV steroids No rash No fevers No diarrhea still with right sided low back pain able to move with much less discomfort. Repeat MRI shows increase in marrow edema and enhancement at L45 juaquin on right side afebrile + BC vir strep 2 D echo positive for veg's on tricuspid valve Antibiotics IV Ceftriaxone Lines PIV line sites ok Past Medical History reviewed (Martha Sierra) Allergies: Coded Allergies: No Known Allergies (Verified Allergy, Unknown, 06/02/17) Objective . Vital Signs Date Time Temp Pulse Resp B/P (MAP) Pulse Ox O2 Delivery O2 Flow Rate FiO2 06/11/17 15:53 98.2 99 18 113/55 (74) 97 06/11/17 12:00 97.6 96 18 117/64 (81) 100 06/11/17 08:00 98.7 76 18 127/61 (83) 100 06/11/17 07:50 80 06/11/17 05:00 97.7 92 18 121/61 (81) 100 06/11/17 00:00 83 06/10/17 23:00 97.8 95 18 119/58 (78) 100 06/10/17 20:00 98.3 101 18 108/63 (78) 98 06/10/17 20:00 96 06/11/17 06/11/17 06/12/17 15:00 23:00 07:00 # Voids 4 # Bowel Movements 1 Imaging Last Impressions Lumbar Spine MRI 06/09/17 0000 Signed Impressions: Service Date/Time: June 17:58 - CONCLUSION: 1. Slight increase in marrow edema and enhancement at L4-5, especially on the right side most characteristic of an early or mild discitis with some inflammatory change in the anterior epidural space. No discrete epidural abscess at this time. There is mild encroachment on the lateral recesses. Abnormal enhancement extends into the neural foramina, worse on the right. Oren Alexander MD Tumor Localization 06/02/17 1016 Signed Impressions: Service Date/Time: May 16:20 - CONCLUSION: Diffuse activity throughout the bones, bladder, spleen and liver as expected. Some activity in the right lower quadrant corresponding with the cecum however there is no evidence of wall thickening or abnormality on the CT portion of the study. Spencer Alvarez MD Physical Exam GENERAL: This is a well-nourished, well-developed female patient, in no apparent distress. Awake and alert. Appears much more comfortable. SKIN: No rashes, ecchymoses or lesions. Cool and dry. HEAD: Atraumatic. Normocephalic. No temporal or scalp tenderness. EYES: Pupils equal round and reactive. Extraocular motions intact. No scleral icterus. No injection or drainage. ENT: Nose without bleeding or purulent drainage. Throat without erythema, tonsillar hypertrophy or exudate. Uvula midline. Airway patent. NECK: Trachea midline. No JVD or lymphadenopathy. Supple, nontender, no meningeal signs. CARDIOVASCULAR: Regular rate and rhythm without murmurs, gallops, or rubs. RESPIRATORY: Clear to auscultation. Breath sounds equal bilaterally. No wheezes , rales, or rhonchi. GASTROINTESTINAL: Abdomen soft, non-tender, nondistended. No hepato-splenomegaly , or palpable masses. No guarding. MUSCULOSKELETAL: Extremities without clubbing, cyanosis, or edema. No joint tenderness, effusion, or edema noted. No calf tenderness. BACK: L spine tender to palpation NEUROLOGICAL: Awake and alert. Cranial nerves II through XII intact. Motor and sensory grossly within normal limits. Five out of 5 muscle strength in all muscle groups. Normal speech. PSYCHIATRIC: Calm and cooperative PIV with no e/o infection (Martha Sierra) Assessment & Plan Remarks Abnormal MRI suspicious for discitis, L spine -repeat MRI L spine shows slight increase in marrow edema and enhancement at L4-5, especially on the right side most characteristic of an early or mild discitis with some inflammatory change in the anterior epidural space. No discrete epidural abscess at this time. Back pain/spasms improving on IV steroids Viridans strep bacteremia - - source endocarditis, diskitis IVDA h/o endocarditis Chronic back with new worsening Leucocytosis: improving Recs: Ok to continue short burst of steroids Continue CFTX 2 gm IV q12hrs repeat cx with no growth x 5 days Repeat MRI in 2 weeks as outpatient or sooner if worsens clinically Obtain CT C/A/P with contrast to look for disseminated infection now that patient is able to tolerate lying flat follow clinically (Martha Sierra) Remarks The exam, history, and the medical decision-making described in the above note were completed with the assistance of the mid-level provider. I reviewed and agree with the findings presented. I attest that I had a [id number] encounter with the patient on the same day, and personally performed and documented my assessment and findings in the medical record. Clinically looks better Able to get out of bed. Started on steroids and seems to help patient. Exam: Abd non tender CTA BL Recs: Continue Ceftriaxone IV Follow up next on Tuesday to assess if ready for DC home. (Miguelina Chase MD) Martha Sierra June 11, 2017 17:41 Miguelina Chase MD June 11, 2017 18:17
[2017-06-11] MEDS ORDERED: DIATRIZOATE MEGLUM/DIATRIZOATE SOD 9 ML CUP PO ONE (18:45)
[2017-06-11] MEDS: REMOVE OLD LIDOCAINE PATCH T-DERMAL SCH (20:16)
[2017-06-11] MEDS ORDERED: IOHEXOL 350 MG/ML 10 ML VIAL (for RAD DIAG) IVCONTRAST ONE (21:49)
--- NOTE | 2017-06-11 23:13 | RADRPT ---
EXAM DATE/TIME: 06/11/2017 21:39 [facility] COMPARISON: No previous studies available for comparison. INDICATIONS : Abscess. IV CONTRAST: 96 cc Omnipaque 350 (iohexol) IV ORAL CONTRAST: Prescribed oral contrast ingested. RADIATION DOSE: 5.34 CTDIvol (mGy) MEDICAL HISTORY : Cardiovascular disease. SURGICAL HISTORY : None. ENCOUNTER: Initial ACUITY: 1 day PAIN SCALE: 3/10 LOCATION: Abdomen TECHNIQUE: Volumetric scanning of the abdomen and pelvis was performed. Using automated exposure control and ad justment of the mA and/or kV according to patient size, radiation dose was kept as low as reasonably achievable to obtain optimal diagnostic quality images. DICOM format image data is available electro nically for review and comparison. FINDINGS: LOWER LUNGS: Mild scarring in the lung bases. LIVER: Homogeneous density without lesion. There is no dilation of the biliary tree. No calcified gallston es. SPLEEN: Normal size without lesion. PANCREAS: Within normal limits. KIDNEYS: Normal in size and shape. There is no mass, stone or hydronephrosis. ADRENAL GLANDS: Within normal limits. VASCULAR: There is no aortic aneurysm. BOWEL/MESENTERY: The stomach, small bowel, and colon demonstrate no acute abnormality. There is no free intraperitone al air or fluid. ABDOMINAL WALL: Within normal limits. RETROPERITONEUM: There is no lymphadenopathy. BLADDER: No wall thickening or mass. REPRODUCTIVE: Small right ovarian cysts. No evidence of suspicious finding or free pelvic fluid INGUINAL: There is no lymphadenopathy or hernia. MUSCULOSKELETAL: Within normal limits for patient age. CONCLUSION: No acute CT findings in the abdomen or pelvis José Antonio Sherman MD on June 11, 2017 at 23:08 Board Certified Radiologist. This report was verified electronically.
[2017-06-12] VITALS (7 sets, daily range): BP systolic 113–123; BP diastolic 56–66; PULSE 81–112; RESP 17–21; TEMP 97.3–97.9; O2SAT 96–100
[2017-06-12] MEDS: MORPHINE SULFATE 4 MG/ML INJ IV PUSH PRN ×4 (02:38→20:46)
[2017-06-12] MEDS: ZOLPIDEM TARTRATE 10 MG TAB PO PRN ×2 (02:38→20:58)
[2017-06-12] MEDS: cefTRIAXone INJ 2,000 MG in SODIUM CHLORIDE 0.9% INJ 100 ML IV SCH ×2 (02:41→13:56)
[2017-06-12] MEDS: oxyCODONE/ACETAMINOPHEN 10 MG/325 MG TAB PO PRN ×3 (06:10→18:43)
[2017-06-12] MEDS: ACETAMINOPHEN 325 MG TAB PO PRN ×2 (08:44→20:58)
[2017-06-12] MEDS: ENOXAPARIN SODIUM 40 MG/0.4 ML SYRINGE SQ SCH (08:44)
[2017-06-12] MEDS: DOCUSATE SODIUM 50 MG/SENNA 8.6 MG TAB PO SCH ×2 (08:56→20:45)
[2017-06-12] MEDS: methylPREDNISolone SOD SUCC 40 MG/1 ML VIAL IV PUSH SCH ×2 (08:56→20:45)
[2017-06-12] MEDS: SODIUM CHLORIDE 0.9% FLUSH 10 ML FLUSH IV FLUSH SCH ×2 (08:57→20:44)
[2017-06-12] MEDS: LIDOCAINE HCL 5% PATCH T-DERMAL SCH (08:58)
[2017-06-12] MEDS: CYCLOBENZAPRINE HCL 10 MG TAB PO PRN ×2 (09:07→18:45)
--- NOTE | 2017-06-12 15:58 | HHI.PR ---
Subjective Remarks CT of abdomen shows no evidence of abscess. Patient has no new complaints today. Outpatient arrangements in process for IV therapy of antibiotics as an outpatient. Objective Vital Signs Date Time Temp Pulse Resp B/P (MAP) Pulse Ox O2 Delivery O2 Flow Rate FiO2 06/12/17 12:00 97.7 112 18 120/62 (81) 100 06/12/17 08:00 97.3 81 18 113/63 (80) 99 06/12/17 04:00 97.5 86 17 113/57 (75) 100 06/12/17 00:00 97.9 95 17 114/56 (75) 99 06/11/17 20:00 97.9 104 17 126/58 (80) 100 06/11/17 17:00 98 I/O 06/11/17 06/11/17 06/11/17 06/12/17 06/12/17 06/12/17 06:59 14:59 22:59 06:59 14:59 22:59 Intake Total 1680 ml Balance 1680 ml Intake Oral 1680 ml # Voids 4 4 3 # Bowel Movements 1 1 Result Diagram: 06/09/17 1206 06/09/17 1206 Objective Remarks GENERAL: NAD, A&Ox3 HEAD: Normocephalic. NECK: Supple, trachea midline. No lymphadenopathy. EYES: No scleral icterus. No injection or drainage. CARDIOVASCULAR: Regular rate and rhythm without murmurs, gallops, or rubs. RESPIRATORY: Breath sounds equal bilaterally. No accessory muscle use. GASTROINTESTINAL: Abdomen soft, non-tender, nondistended. MUSCULOSKELETAL: No cyanosis, or edema. SKIN: Warm and dry. NEURO: No focal neurological deficitis. A/P Problem List: (1) Bacteremia ICD Code: R78.81 - Bacteremia (2) Discitis ICD Code: M46.40 - Discitis, unspecified, site unspecified (3) Endocarditis ICD Code: I38 - Endocarditis, valve unspecified Status: Acute (4) IV drug abuse ICD Code: F19.10 - Other psychoactive substance abuse, uncomplicated Status: Chronic Assessment and Plan 32-year-old female admitted secondary to infective endocarditis with discitis and bacteremia, related to IV drug abuse. Continue steroids for total of 4 days. No evidence of abscess at spine or abdomen. Continue IV treatments inpatient until outpatient arrangements are made and then patient should be stable for discharge. Discitis Infective endocarditis Bacteremia Continue to monitor blood cultures Continue IV vancomycin Infectious disease following Blood cultures positive for Streptococcus on ID/sensitivities For back pain, continue Percocet and Robaxin Continue pain treatments as needed Physical therapy History of IV drug abuse the last time she used IV drugs as well as a couple of months ago. currently on Suboxone as outpatient She has a history of complying with outpatient treatments and sobriety DVT prophylaxis Lovenox Discharge Planning Continue IV antibiotics and plan for outpatient IV antibiotic arrangements Blake Alcala MD June 12, 2017 15:58
[2017-06-12] MEDS: REMOVE OLD LIDOCAINE PATCH T-DERMAL SCH (20:47)
[2017-06-13] VITALS: BP 114/55; PULSE 94; RESP 20; TEMP 97.2; O2SAT 100
[2017-06-13] MEDS: oxyCODONE/ACETAMINOPHEN 10 MG/325 MG TAB PO PRN ×4 (00:49→18:40)
[2017-06-13] MEDS: cefTRIAXone INJ 2,000 MG in SODIUM CHLORIDE 0.9% INJ 100 ML IV SCH ×2 (00:50→13:37)
[2017-06-13] MEDS: CYCLOBENZAPRINE HCL 10 MG TAB PO PRN ×3 (02:21→18:40)
[2017-06-13] MEDS: MORPHINE SULFATE 4 MG/ML INJ IV PUSH PRN ×4 (03:19→22:04)
[2017-06-13 06:24] VITALS: BP 120/66; PULSE 72; RESP 18; TEMP 97.6; O2SAT 98
[2017-06-13 08:00] VITALS: BP 119/60; PULSE 70; RESP 16; TEMP 97.7; O2SAT 100
[2017-06-13] MEDS: ACETAMINOPHEN 325 MG TAB PO PRN (10:05)
[2017-06-13] MEDS: LIDOCAINE HCL 5% PATCH T-DERMAL SCH (10:05)
[2017-06-13] MEDS: methylPREDNISolone SOD SUCC 40 MG/1 ML VIAL IV PUSH SCH (10:05)
[2017-06-13] MEDS: DOCUSATE SODIUM 50 MG/SENNA 8.6 MG TAB PO SCH ×2 (10:06→21:28)
[2017-06-13] MEDS: ENOXAPARIN SODIUM 40 MG/0.4 ML SYRINGE SQ SCH (10:06)
[2017-06-13] MEDS: SODIUM CHLORIDE 0.9% FLUSH 10 ML FLUSH IV FLUSH SCH ×2 (10:07→21:29)
[2017-06-13 12:00] VITALS: BP 119/57; PULSE 71; RESP 16; TEMP 97.7; O2SAT 98
--- NOTE | 2017-06-13 12:38 | HHI.PR ---
Subjective Remarks Follow-up infectious endocarditis and discitis. States she is weak but getting stronger participating with physical therapy. Discussed with nursing and case management, unable to arrange op IV abx [facility] has declined pt Objective Vitals Vital Signs Date Time Temp Pulse Resp B/P (MAP) Pulse Ox O2 Delivery O2 Flow Rate FiO2 06/13/17 12:00 97.7 71 16 119/57 (77) 98 06/13/17 08:00 97.7 70 16 119/60 (79) 100 06/13/17 06:24 97.6 72 18 120/66 (84) 98 06/13/17 00:00 97.2 94 20 114/55 (74) 100 06/12/17 21:00 94 06/12/17 20:00 97.9 106 21 123/66 (85) 96 06/12/17 16:00 97.7 98 18 117/66 (83) 100 I/O 06/12/17 06/12/17 06/12/17 06/13/17 06/13/17 06/13/17 07:00 15:00 23:00 07:00 15:00 23:00 Intake Total 1680 ml Balance 1680 ml Intake Oral 1680 ml # Voids 3 # Bowel Movements 1 Result Diagram: 06/09/17 1206 06/09/17 1206 Imaging Last Impressions Abdomen/Pelvis CT 06/11/17 0000 Signed Impressions: Service Date/Time: Sunday, June 11, 2017 21:39 - CONCLUSION: No acute CT findings in the abdomen or pelvis José Antonio Sherman MD Lumbar Spine MRI 06/09/17 0000 Signed Impressions: Service Date/Time: June 17:58 - CONCLUSION: 1. Slight increase in marrow edema and enhancement at L4-5, especially on the right side most characteristic of an early or mild discitis with some inflammatory change in the anterior epidural space. No discrete epidural abscess at this time. There is mild encroachment on the lateral recesses. Abnormal enhancement extends into the neural foramina, worse on the right. Oren Alexander MD Tumor Localization 06/02/17 1016 Signed Impressions: Service Date/Time: May 16:20 - CONCLUSION: Diffuse activity throughout the bones, bladder, spleen and liver as expected. Some activity in the right lower quadrant corresponding with the cecum however there is no evidence of wall thickening or abnormality on the CT portion of the study. Spencer Alvarez MD Objective Remarks GENERAL: NAD, A&Ox3 HEAD: Normocephalic. NECK: Supple, trachea midline. No lymphadenopathy. EYES: No scleral icterus. No injection or drainage. CARDIOVASCULAR: Regular rate and rhythm without murmurs, gallops, or rubs. RESPIRATORY: Breath sounds equal bilaterally. No accessory muscle use. GASTROINTESTINAL: Abdomen soft, non-tender, nondistended. MUSCULOSKELETAL: No cyanosis, or edema. SKIN: Warm and dry. NEURO: No focal neurological deficits. Procedures None A/P Problem List: (1) Discitis ICD Code: M46.40 - Discitis, unspecified, site unspecified (2) Endocarditis ICD Code: I38 - Endocarditis, valve unspecified Status: Acute Assessment and Plan 32-year-old female admitted secondary to infective endocarditis with discitis and bacteremia, related to IV drug abuse. Discitis Infective endocarditis Bacteremia Continue to monitor blood cultures Continue IV Rocephin Infectious disease following Blood cultures positive for Streptococcus. Repeat blood culture negative For back pain, continue Percocet and Robaxin counseled regarding narcotic Continue pain treatments as needed Physical therapy History of IV drug abuse the last time she used IV drugs as well as a couple of months ago. currently on Suboxone as outpatient, will resume after discharge and discontinue Percocet She has a history of complying with outpatient treatments and sobriety DVT prophylaxis Lovenox Discharge Planning Continue IV antibiotics and plan for outpatient IV antibiotic arrangements Discharge Planning Discussed with nursing and case management, unable to arrange op IV abx [facility] has declined pt Ron Hendrix MD June 13, 2017 12:38
--- NOTE | 2017-06-13 14:24 | HHI.IDPN ---
Subjective Subjective Remarks Patient seen and examined on behalf of Dr. Chase is a 32 y/o CF with PMHx of IV drug abuse and history of endocarditis presents to the emergency department for evaluation of lower back pain. The patient reports that for the past 3 days she has had a sharp, stabbing pain in her lower back. She reports the pain is worse with movement but is there all the time. She reports she is having difficulty with ambulation secondary to this pain. She denies any shortness of breath or chest pain. No fevers or chills. No nausea/vomiting. No abdominal pain. No lateralizing signs/symptoms except complains of pain radiating from back to Right leg. No tingling numbness. No loss of sensation in perineum. No bowel/bladder incontinence. ID following for discitis and Strep Endocarditis. Notes reviewed. Patient states she is doing well still with back spasms but much improved no rash no fevers no dysuria no diarrhea Repeat MRI shows increase in marrow edema and enhancement at L45 juaquin on right side afebrile + BC vir strep repeat BCX with no growth x 5 days 2 D echo positive for veg's on tricuspid valve CT abd/pelvis negative Antibiotics IV Ceftriaxone Current Medications Medications (Trade) Dose Ordered Sig/Elisabet Route Start Time Stop Time Status Last Admin (NS Flush) 2 ml UNSCH PRN IV FLUSH 06/02/17 02:45 06/10/17 05:31 (NS Flush) 2 ml BID IV FLUSH 06/02/17 09:00 06/13/17 10:07 (Tylenol) 650 mg Q4H PRN PO 06/02/17 02:45 06/13/17 10:05 (Zofran Inj) 4 mg Q6H PRN IVP 06/02/17 02:45 (Narcan Inj) 0.4 mg UNSCH PRN IV PUSH 06/02/17 02:45 (Micki-Colace) 1 tab BID PO 06/02/17 09:00 06/13/17 10:06 (Milk Of Magnesia Liq) 30 ml Q12H PRN PO 06/02/17 02:45 (Senokot) 17.2 mg Q12H PRN PO 06/02/17 02:45 (Dulcolax Supp) 10 mg DAILY PRN RECTAL 06/02/17 02:45 (Lactulose Liq) 30 ml DAILY PRN PO 06/02/17 02:45 (Percocet 10-325 Mg) 1 tab Q6H PRN PO 06/03/17 09:45 06/13/17 13:38 (Percocet 5-325 Mg) 1 tab Q6H PRN PO 06/03/17 09:45 06/09/17 00:32 (Lovenox Inj) 40 mg Q24H SQ 06/04/17 09:00 06/13/17 10:06 (Lidoderm 5% Patch.12 Hr) 1 patch DAILY T-DERMAL 06/05/17 09:00 06/13/17 10:05 Miscellaneous Information 1 Q24H T-DERMAL 06/05/17 21:00 06/12/17 20:47 (Ambien) 10 mg HS PRN PO 06/05/17 10:15 06/12/17 20:58 Ceftriaxone Sodium 2000 mg/ Sodium Chloride 100 ml @ 200 mls/hr Q12H IV 06/07/17 02:00 06/13/17 13:37 (Morphine Inj) 2 mg Q3H PRN IV PUSH 06/06/17 20:30 06/13/17 10:06 (Flexeril) 10 mg Q8H PRN PO 06/08/17 11:45 06/13/17 10:06 Lines PIV line sites ok Past Medical History reviewed (Martha Sierra) Allergies: Coded Allergies: No Known Allergies (Verified Allergy, Unknown, 06/02/17) Objective . Vital Signs Date Time Temp Pulse Resp B/P (MAP) Pulse Ox O2 Delivery O2 Flow Rate FiO2 06/13/17 12:00 97.7 71 16 119/57 (77) 98 06/13/17 08:00 97.7 70 16 119/60 (79) 100 06/13/17 06:24 97.6 72 18 120/66 (84) 98 06/13/17 00:00 97.2 94 20 114/55 (74) 100 06/12/17 21:00 94 06/12/17 20:00 97.9 106 21 123/66 (85) 96 06/12/17 16:00 97.7 98 18 117/66 (83) 100 Imaging Last Impressions Abdomen/Pelvis CT 06/11/17 0000 Signed Impressions: Service Date/Time: Sunday, June 11, 2017 21:39 - CONCLUSION: No acute CT findings in the abdomen or pelvis José Antonio Sherman MD Lumbar Spine MRI 06/09/17 0000 Signed Impressions: Service Date/Time: June 17:58 - CONCLUSION: 1. Slight increase in marrow edema and enhancement at L4-5, especially on the right side most characteristic of an early or mild discitis with some inflammatory change in the anterior epidural space. No discrete epidural abscess at this time. There is mild encroachment on the lateral recesses. Abnormal enhancement extends into the neural foramina, worse on the right. Oren Alexander MD Tumor Localization 06/02/17 1016 Signed Impressions: Service Date/Time: May 16:20 - CONCLUSION: Diffuse activity throughout the bones, bladder, spleen and liver as expected. Some activity in the right lower quadrant corresponding with the cecum however there is no evidence of wall thickening or abnormality on the CT portion of the study. Spencer Alvarez MD Physical Exam GENERAL: This is a well-nourished, well-developed female patient, in no apparent distress. Awake and alert. Sitting up in bed. SKIN: No rashes, ecchymoses or lesions. Cool and dry. HEAD: Atraumatic. Normocephalic. No temporal or scalp tenderness. EYES: Pupils equal round and reactive. Extraocular motions intact. No scleral icterus. No injection or drainage. ENT: Nose without bleeding or purulent drainage. Throat without erythema, tonsillar hypertrophy or exudate. Uvula midline. Airway patent. NECK: Trachea midline. No JVD or lymphadenopathy. Supple, nontender, no meningeal signs. CARDIOVASCULAR: Regular rate and rhythm without murmurs, gallops, or rubs. RESPIRATORY: Clear to auscultation. Breath sounds equal bilaterally. No wheezes , rales, or rhonchi. GASTROINTESTINAL: Abdomen soft, non-tender, nondistended. No hepato-splenomegaly , or palpable masses. No guarding. MUSCULOSKELETAL: Extremities without clubbing, cyanosis, or edema. No joint tenderness, effusion, or edema noted. No calf tenderness. BACK: L spine tender to palpation NEUROLOGICAL: Awake and alert. Cranial nerves II through XII intact. Motor and sensory grossly within normal limits. Normal speech. PSYCHIATRIC: Calm and cooperative PIV with no e/o infection (Martha Sierra) Assessment & Plan Remarks ASSESSMENT: Abnormal MRI suspicious for discitis, L spine -repeat MRI L spine shows slight increase in marrow edema and enhancement at L4-5, especially on the right side most characteristic of an early or mild discitis with some inflammatory change in the anterior epidural space. No discrete epidural abscess at this time. -CT abd/pelvis negative Back pain/spasms improving on IV steroids Viridans strep bacteremia - - source endocarditis, diskitis IVDA h/o endocarditis Chronic back with new worsening, improved Leucocytosis: improving Recs: Ok to continue short burst of steroids Continue CFTX 2 gm IV q12hrs, plan initially for 6 week tx course Discussed with CM - patient declined by [facility]. No payor source. Repeat MRI in 2 weeks as outpatient or sooner if worsens clinically follow clinically (Martha Sierra) Remarks The exam, history, and the medical decision-making described in the above note were completed with the assistance of the mid-level provider. I reviewed and agree with the findings presented. I attest that I had a [id number] encounter with the patient on the same day, and personally performed and documented my assessment and findings in the medical record. Clinically better Using walker now since addition of steroids pain and spasms decreased Exam CTA BL Recs: Ceftriaxone IV q12hrs (or pump) Stop date: 07/25/2017 Will need walker Home with parents Repeat MRI in 4 weeks Order for MRI given to Case Management to arrange after admin approval for [facility]. Will sign off please call back if any change in clinical condition or questions (Miguelina Chase MD) Martha Sierra June 13, 2017 14:24 Miguelina Chase MD June 13, 2017 19:01
[2017-06-13 16:00] VITALS: BP 131/62; PULSE 97; RESP 16; TEMP 98; O2SAT 100
[2017-06-13] MEDS: SODIUM CHLORIDE 0.9% FLUSH 10 ML FLUSH IV FLUSH PRN (17:09)
[2017-06-13] MEDS ORDERED: SOLU250I IV PUSH (18:56)
[2017-06-13] MEDS ORDERED: EPIN1INJ21 IV PUSH (18:56)
[2017-06-13] MEDS ORDERED: EPIN1INJ21 SQ (18:56)
[2017-06-13] MEDS ORDERED: CEFT1INJ5 IV (18:56)
--- NOTE | 2017-06-13 19:02 | HHI.FF ---
Infusion Therapy Location of Infusion Therapy: Ambulatory Infusion Therapy Order Patient Information Appointment Date: June 14, 2017 Patient Weight 60.3 kg Diagnosis: Diagnosis Strep endocarditis Strep discitis spine Coded Allergies: No Known Allergies (Verified Allergy, Unknown, 06/02/17) Administer Medication Ceftriaxone 2 grams IV q 12 hours (May be given over a pump. Total 4 gm over 24 hours.) Start Treatment: June 13, 2017 Stop Treatment: Jul 25, 2017 Additional Information Venous access: PICC Line Additional Instructions [x] Peripheral flush and dressing changes per protocol [x] Implanted port and central line supply: * Implanted port: 10 ml Normal Saline followed by 5 ml Heparin 100 units/ml Heparin flush after each use and monthly to maintain. [] May leave port accessed during therapy. [] May leave peripheral site accessed for duration of therapy. [x] If patient has SOB or respiratory distress, check oxygen saturation. If less than 90% or clinical signs of respiratory distress, administer oxygen at 2 L/min. via nasal cannula and notify physician. [x] Anaphylaxis/Reaction orders: * Stop infusion. * Keep IV line open with saline flush. * Notify physician. * Monitor vital signs every 15 minutes until symptoms resolve. * Check Oxygen saturation; Oxygen at 2 L/min. via nasal cannula if less than 90% or clinical signs of respiratory distress. * Administer diphenhydramine (Benadryl) 25 mg IV STAT, (unless patient has received as pre-med). May repeat once, if necessary. * Solu-Cortef 250 mg IVP over 30-60 seconds, use 100 mg vials for each dissolution. * Epinephrine (1mg/1 ml) 0.3 mg subcutaneously or IVP now with any signs of respiratory distress. * Check with physician for new additional pre-med orders if patient is re- challenged or re-treated. [x] May remove PICC line when treatment complete, after confirming with Physician. [x] If the patient is admitted to the hospital, the ED, or transferred via [facility] , complete transfer form including medication reconciliation order sheet. Laboratory Tests Weekly Labs: CBC w/diff, Creatinine, CRP, LFT's (Hepatic function test) Additional Information Please draw weekly labs, Fax to number below. Please call with abnormal labs or change in clinical condition or problems to: or covering ID Physician Follow up appt: Follow up with PCP Follow up with other MDs as planned. Counseling: Counseled about medication side effects Counseled about PICC line care and hand hygiene. Miguelina Chase MD June 13, 2017 19:02
[2017-06-13 20:00] VITALS: BP 116/56; PULSE 103; PULSE 95; RESP 18; TEMP 97.8; O2SAT 100
[2017-06-13] MEDS: ZOLPIDEM TARTRATE 10 MG TAB PO PRN (21:28)
[2017-06-13] MEDS: REMOVE OLD LIDOCAINE PATCH T-DERMAL SCH (21:31)
[2017-06-14] VITALS: BP 130/62; PULSE 82; PULSE 88; RESP 18; TEMP 97.8; O2SAT 99
[2017-06-14] MEDS: cefTRIAXone INJ 2,000 MG in SODIUM CHLORIDE 0.9% INJ 100 ML IV SCH ×2 (02:34→15:28)
[2017-06-14] MEDS: CYCLOBENZAPRINE HCL 10 MG TAB PO PRN ×2 (02:35→10:39)
[2017-06-14] MEDS: oxyCODONE/ACETAMINOPHEN 10 MG/325 MG TAB PO PRN ×3 (02:35→15:27)
[2017-06-14 04:00] VITALS: BP 112/56; PULSE 76; RESP 18; TEMP 97.4; O2SAT 100
[2017-06-14] MEDS: MORPHINE SULFATE 4 MG/ML INJ IV PUSH PRN ×2 (05:39→10:39)
[2017-06-14 08:00] VITALS: BP 113/66; PULSE 95; RESP 18; TEMP 97.9; O2SAT 100
[2017-06-14] MEDS: DOCUSATE SODIUM 50 MG/SENNA 8.6 MG TAB PO SCH (08:50)
[2017-06-14] MEDS: ENOXAPARIN SODIUM 40 MG/0.4 ML SYRINGE SQ SCH (08:51)
[2017-06-14] MEDS: LIDOCAINE HCL 5% PATCH T-DERMAL SCH (08:51)
[2017-06-14] MEDS: SODIUM CHLORIDE 0.9% FLUSH 10 ML FLUSH IV FLUSH SCH (08:52)
--- NOTE | 2017-06-14 09:06 | HHI.PR ---
Subjective Remarks Follow-up discitis. Continues to have low back pain managed with Percocet Objective Vitals Vital Signs Date Time Temp Pulse Resp B/P (MAP) Pulse Ox O2 Delivery O2 Flow Rate FiO2 06/14/17 08:00 97.9 95 18 113/66 (82) 100 06/14/17 05:45 18 06/14/17 04:00 97.4 76 18 112/56 (74) 100 06/14/17 03:35 18 06/14/17 00:00 97.8 88 18 130/62 (84) 99 06/14/17 00:00 82 06/13/17 20:00 95 06/13/17 20:00 97.8 103 18 116/56 (76) 100 06/13/17 16:00 98.0 97 16 131/62 (85) 100 06/13/17 12:00 97.7 71 16 119/57 (77) 98 I/O 06/13/17 06/13/17 06/13/17 06/14/17 06/14/17 06/14/17 07:00 15:00 23:00 07:00 15:00 23:00 Intake Total 1560 ml Balance 1560 ml Intake Oral 1560 ml # Voids 7 5 # Bowel Movements 1 Imaging Last Impressions Abdomen/Pelvis CT 06/11/17 0000 Signed Impressions: Service Date/Time: Sunday, June 11, 2017 21:39 - CONCLUSION: No acute CT findings in the abdomen or pelvis José Antonio Sherman MD Lumbar Spine MRI 06/09/17 0000 Signed Impressions: Service Date/Time: June 17:58 - CONCLUSION: 1. Slight increase in marrow edema and enhancement at L4-5, especially on the right side most characteristic of an early or mild discitis with some inflammatory change in the anterior epidural space. No discrete epidural abscess at this time. There is mild encroachment on the lateral recesses. Abnormal enhancement extends into the neural foramina, worse on the right. Oren Alexander MD Tumor Localization 06/02/17 1016 Signed Impressions: Service Date/Time: May 16:20 - CONCLUSION: Diffuse activity throughout the bones, bladder, spleen and liver as expected. Some activity in the right lower quadrant corresponding with the cecum however there is no evidence of wall thickening or abnormality on the CT portion of the study. Spencer Alvarez MD Objective Remarks GENERAL: NAD, A&Ox3 CARDIOVASCULAR: Regular rate and rhythm without murmurs, gallops, or rubs. RESPIRATORY: Breath sounds equal bilaterally. No accessory muscle use. GASTROINTESTINAL: Abdomen soft, non-tender, nondistended. MUSCULOSKELETAL: No cyanosis, or edema. SKIN: Warm and dry. NEURO: No focal neurological deficits. Procedures None A/P Problem List: (1) Discitis ICD Code: M46.40 - Discitis, unspecified, site unspecified (2) Endocarditis ICD Code: I38 - Endocarditis, valve unspecified Status: Acute Assessment and Plan 32-year-old female admitted secondary to infective endocarditis with discitis and bacteremia, related to IV drug abuse. Discitis Infective endocarditis Bacteremia Continue to monitor blood cultures Continue IV Rocephin stop date July 25, 2017 by [facility] Infectious disease following Blood cultures positive for Streptococcus. Repeat blood culture negative For back pain, continue Percocet and Robaxin counseled regarding narcotic Continue pain treatments as needed Physical therapy Repeat MRI of the lumbar spine in a month patient aware History of IV drug abuse the last time she used IV drugs as well as a couple of months ago. currently on Suboxone as outpatient from [facility], will resume after discharge and discontinue Percocet patient aware. Will give prescription for # 12 pills. Counseled regarding narcotics She has a history of complying with outpatient treatments and sobriety DVT prophylaxis Lovenox Discharge Planning Continue IV antibiotics and plan for outpatient IV antibiotic arrangements Ron Hendrix MD June 14, 2017 09:06
[2017-06-14 09:42] VITALS: PULSE 80
[2017-06-14] MEDS: SODIUM CHLORIDE 0.9% FLUSH 10 ML FLUSH IV FLUSH PRN (10:39)
[2017-06-14 12:00] VITALS: BP 124/65; PULSE 78; RESP 18; TEMP 97.9; O2SAT 100
[2017-06-14] MEDS ORDERED: OXYC1TAB36 PO (13:09)
[2017-06-14] MEDS ORDERED: CYCL10TA PO (13:09)
--- NOTE | 2017-06-14 13:11 | HHI.DCPOC ---
Discharge Care Plan Diagnosis: (1) Discitis Your Health Problems Are: Difficulty with ADL Exercise Tolerance Goals to Promote Your Health * To prevent worsening of your condition and complications * To maintain your health at the optimal level Directions to Meet Your Goals Take your medications as prescribed Follow your dietary instruction Follow activity as directed Keep your appointments as scheduled Take your immunizations and boosters as scheduled If your symptoms worsen call your PCP, if no PCP go to Urgent Care Center or Emergency Room Smoking is Dangerous to Your Health. Avoid second hand smoke Call the 24-hour hour crisis hotline for domestic abuse at Ron Hendrix MD June 14, 2017 13:10
[2017-06-14] MEDS ORDERED: WALKER WHEELS/F1 MIS (13:19)
[2017-06-14] MEDS ORDERED: SODIUM CHLORIDE 0.9% FLUSH 10 ML FLUSH IV FLUSH PRN (15:00)
--- NOTE | 2017-06-14 17:29 | HHI.DS ---
Discharge Summary Admission Date Jun 03, 2017 at 09:40 Discharge Date: June 14, 2017 Admitting Diagnosis Back pain rule out discitis (1) Discitis ICD Code: M46.40 - Discitis, unspecified, site unspecified Diagnosis: Principal (2) Endocarditis ICD Code: I38 - Endocarditis, valve unspecified Diagnosis: Principal Status: Acute Procedures None Brief History - From Admission 32-year-old female with past medical history significant for IV drug abuse and history of endocarditis presents to the emergency department for evaluation of lower back pain. The patient reports that for the past 3 days she has had a sharp, stabbing pain in her lower back. She reports the pain is worse with movement but is there all the time. She reports she is having difficulty with ambulation secondary to this pain. She denies any shortness of breath or chest pain. No fevers or chills. No nausea/vomiting. No abdominal pain. No lateralizing signs/symptoms. No bowel/bladder incontinence. Imaging Last Impressions Abdomen/Pelvis CT 06/11/17 0000 Signed Impressions: Service Date/Time: Sunday, June 11, 2017 21:39 - CONCLUSION: No acute CT findings in the abdomen or pelvis José Antonio Sherman MD Lumbar Spine MRI 06/09/17 0000 Signed Impressions: Service Date/Time: June 17:58 - CONCLUSION: 1. Slight increase in marrow edema and enhancement at L4-5, especially on the right side most characteristic of an early or mild discitis with some inflammatory change in the anterior epidural space. No discrete epidural abscess at this time. There is mild encroachment on the lateral recesses. Abnormal enhancement extends into the neural foramina, worse on the right. Oren Alexander MD Tumor Localization 06/02/17 1016 Signed Impressions: Service Date/Time: May 16:20 - CONCLUSION: Diffuse activity throughout the bones, bladder, spleen and liver as expected. Some activity in the right lower quadrant corresponding with the cecum however there is no evidence of wall thickening or abnormality on the CT portion of the study. Spencer Alvarez MD PE at Discharge GENERAL: NAD, A&Ox3 CARDIOVASCULAR: Regular rate and rhythm without murmurs, gallops, or rubs. RESPIRATORY: Breath sounds equal bilaterally. No accessory muscle use. GASTROINTESTINAL: Abdomen soft, non-tender, nondistended. MUSCULOSKELETAL: No cyanosis, or edema. SKIN: Warm and dry. NEURO: No focal neurological deficits. Hospital Course 32-year-old female admitted secondary to infective endocarditis with discitis and bacteremia, related to IV drug abuse. Discitis Infective endocarditis Bacteremia Continue to monitor blood cultures Continue IV Rocephin stop date July 25, 2017 by [facility] Infectious disease following Blood cultures positive for Streptococcus. Repeat blood culture negative For back pain, continue Percocet and Robaxin counseled regarding narcotic Continue pain treatments as needed Physical therapy Repeat MRI of the lumbar spine in a month patient aware History of IV drug abuse the last time she used IV drugs as well as a couple of months ago. currently on Suboxone as outpatient from [facility], will resume after discharge and discontinue Percocet patient aware. Will give prescription for # 12 pills. Counseled regarding narcotics She has a history of complying with outpatient treatments and sobriety DVT prophylaxis Lovenox Discharge Planning Continue IV antibiotics and plan for outpatient IV antibiotic arrangements Pt Condition on Discharge: Stable Discharge Disposition: Discharge Home Discharge Time: > 30 minutes Discharge Instructions DIET: Follow Instructions for: As Tolerated, No Restrictions Activities you can perform: Regular-No Restrictions Activities to Avoid: Driving Follow up Referrals: Appointment for Follow Up @ Infectious Disease Infectious Disease - 1 Week PCP Follow-up - 1 Week PCP Follow-up @ [facility] New Medications: Ceftriaxone Inj (Ceftriaxone Inj) 1 Gram Inj 2 GM IV Q12HR for Infection for 42 Days, BAG 0 Refills Epinephrine Inj (Epinephrine Inj) 1 Mg/Ml (1 Ml) Inj 0.3 MG IV PUSH ONCE PRN for ALLERGIC REACTION, #1 VIAL Epinephrine Inj (Epinephrine Inj) 1 Mg/Ml (1 Ml) Inj 0.3 MG SQ ONCE PRN for ALLERGIC REACTION, #1 VIAL Give with any signs of respiratory distress. Hydrocortisone Inj (Solu-Cortef Inj) 250 Mg/2 Ml Inj 250 MG IV PUSH ONCE PRN for ALLERGIC REACTION, #1 VIAL 0 Refills Give over 30-60 seconds. Walker with Front Wheels (Walker with Front Wheels) 1 Mis Mis EA .XX DIRECTED, #1 0 Refills Cyclobenzaprine (Flexeril) 10 Mg Tab 10 MG PO Q8H PRN for Back Spasm, #30 TAB Oxycodone HCl/Acetaminophen (Oxycodone-Acetaminophen 10-325) 10 Mg-325 Mg Tablet 1 TAB PO Q6H PRN for PAIN 6-10, #12 TAB Additional Information Case management to arrange for outpatient MRI in 4 weeks Ron Hendrix MD June 14, 2017 17:28
[2017-06-15] MEDS ORDERED: SODIUM CHLORIDE 0.9% FLUSH 10 ML FLUSH IV FLUSH SCH (09:00)
== END 2017-06-14 17:15 | disposition home or self-care (01) | DRG 289 ==
LOC: NEPE 19:29 → NEDA 06-02 03:22 → NEDH 06-02 06:39 → NEPHCDU 06-02 13:52 → OBSVTOIN 06-03 09:40 → N05B 06-04 17:06
PROVIDERS: ADMIT Internal Medicine; ATTEND Internal Medicine
DX: I33.0 Acute and subacute infective endocarditis (principal); R78.81 Bacteremia; M46.46 Discitis, unspecified, lumbar region; F14.90 Cocaine use, unspecified, uncomplicated; M62.830 Muscle spasm of back; B95.4 Other streptococcus as the cause of diseases classified elsewhere; F12.90 Cannabis use, unspecified, uncomplicated; F17.290 Nicotine dependence, other tobacco product, uncomplicated; F19.10 Other psychoactive substance abuse, uncomplicated
CPT/HCPCS: 36569; 72148; 72158; 74177; 76937; 78806; 78807; 78999; 80048; 80053; 80202; 80307; 81001; 83605; 83735; 85025; 85027; 86140; 87040; 87186; 87205; 93306; A9569; A9579; G8987-GP; G8988-GP; J0696; J1170; J1650; J1885; J2270; J2360; J2405; J2543; J2800; J2920; J3370; J7030; J7050; Q9963; Q9967

== ENCOUNTER → 2017-07-07 | Outpatient (CLI) | payer SELFPAY ==
[~2017-07-07] MED LIST changes: -AMBI10TA PO; +CEFT1INJ5 IV; +CYCL10TA PO; -DILA2TAB4 PO; +EPIN1INJ21 IV PUSH; +EPIN1INJ21 SQ; +GADODIAMIDE PF 287 MG/ML 5 ML VIAL (for RAD MRI) IVCONTRAST ONE; -IBUP800T23 PO; -NICO21T TD; -NORT1CAP53 PO; +OXYC1TAB36 PO; +SOLU250I IV PUSH; +WALKER WHEELS/F1 MIS
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
== END ==
LOC: HRAD 13:04
PROVIDERS: ATTEND Internal Medicine Infectious Disease
DX: M54.5 Low back pain (principal); V89.2XXA Person injured in unspecified motor-vehicle accident, traffic, initial encounter
CPT/HCPCS: 72158; A9579